=== PATIENT | female | born 1960 | race Caucasian/White ===

== ENCOUNTER → 2017-01-25 | Outpatient (CLI) | payer OTHER ==
[~2017-01-25] MED LIST: CITA20TA4 PO; IBUP-1050 PO; PRLSR20 PO
[2017-01-26 12:04] LABS: URINE APPEARANCE CLOUDY (CLEAR); URINE BILIRUBIN NEG (NEG); URINE COLOR YELLOW; URINE NITRITE NEG (NEG); URINE PH 6.5 (4.5-7.5); URINE SPECIFIC GRAVITY 1.023 (1.000-1.030); UROBILINOGEN NEG (NEG)
[2017-01-26 12:07] LABS: MANUAL MICROSCOPIC REQUIRED? NO; REVIEW REQ? YES
== END | disposition home or self-care (01) ==
LOC: C.LABSPEC 11:27
PROVIDERS: ATTEND Family Medicine
DX: Z00.00 Encounter for general adult medical examination without abnormal findings (principal)

== ENCOUNTER 2019-10-18 15:13 | Inpatient (IN) ==
[2019-10-18] MEDS ORDERED: SODIUM CHLORIDE 0.9% 1000ML 1,000 ML IV ONE ×2 (15:26→17:56)
--- NOTE | 2019-10-18 15:38 | XRay Report ---
XR chest 1V portable CLINICAL HISTORY: 59 years-old Female presenting with confusion, weakness. TECHNIQUE: Portable upright AP view of the chest was obtained. COMPARISON: 10/08/2019. FINDINGS: Right internal jugular Mediport terminates in the superior cavoatrial junction. Cardiomediastinal thelma houette normal. No focal opacity. No large effusion or pneumothorax. Degenerative changes of the thor acic spine. Upper abdomen normal. IMPRESSION: 1. No acute cardiopulmonary disease. ACT 112: Negative or not required by law. Electronically signed by: Juan Jose Campbell M.D. 10/18/2019 3:37 PM
[2019-10-18 15:42] LABS: Basophils # (auto) 0.02 K/uL (0-0.2); Basophils % (auto) 0.2 %; Hematocrit (blood only) 32.1 % (37-47); Hemoglobin 10.7 g/dL (12.0-16.0); Immature Granulocytes # (auto) 0.04 K/uL (0.00-0.02); Immature Granulocytes % (auto) 0.4 %; Lymphocytes % (auto) 12.7 %; Mean Corpuscular Hemoglobin 28.8 pg (25-34); Mean Corpuscular Hgb Conc 33.3 g/dL (32-36); Mean Corpuscular Volume 86.3 fL (80-100); Mean Platelet Volume 9.1 fL (7.4-10.4); Monocytes % (auto) 15.4 %; Neutrophils # (auto) 7.85 K/uL (1.4-6.5); Neutrophils % (auto) 71.3 %; Platelet Count 635 K/uL (130-400); RDW Coefficient of Variation 15.8 % (11.5-14.5); RDW Standard Deviation 48.4 fL (36.4-46.3); Red Blood Count 3.72 M/uL (4.2-5.4); White Blood Count 11.01 K/uL (4.8-10.8)
[2019-10-18 15:52] LABS: INR 1.4 (0.9-1.1); Prothrombin Time 14.3 Seconds (9.0-12.0)
[2019-10-18 16:05] LABS: Albumin Globulin Ratio 0.5 (0.9-2); Albumin Level 2.4 gm/dl (3.4-5.0); BUN Creatinine Ratio 12.2 (10-20); Bilirubin,Total 0.6 mg/dl (0.2-1); Calcium 9.3 mg/dl (8.5-10.1); Creatinine Clr Calc Pharmacy 68.2 ml/min; Est GFR (African American) 95.1; Est GFR (Non-African American) 82.1; Globulin 4.8 gm/dl (2.5-4.0); Phosphorus 2.1 mg/dl (2.5-4.9); Potassium 3.4 mmol/L (3.5-5.1); Total Protein 7.2 gm/dl (6.4-8.2)
[2019-10-18] MEDS: MAGNESIUM SULFATE / D5W 1 GM/100 ML BAG IV SCH ×2 (16:19→17:30)
--- NOTE | 2019-10-18 16:22 | Emergency Department Note ---
History of Present Illness General Chief complaint: Illness History of Present Illness Maximum Pain Intensity: 7 This patient is a 59-year-old female who presents emergency department compl aining of severe diarrhea for the last 2 days. She also reports a lower, chronic abdominal pain. The patient has a history of metastatic endometrial cancer. She is currently on palliative chemotherapy, however she has not been able to receive it for "poor numbers." She denies any fever. She was nauseated earlier today. She received Zofran in route, which has seemed to help. She denies any sick contacts. She reports that she has not left her house. She does say that she was slightly confused for a few minutes this morning. Home Medications Home Medications Medication Instructions Recorded Confirmed Type Probiotic 3,000 mmu cells PO QDL 05/18/19 10/18/19 History Vitamin B-6 50 mg PO QDL 05/18/19 10/18/19 History cyanocobalamin (vitamin B-12) 500 mcg PO QDL 05/18/19 10/18/19 History multivitamin 1 tab PO QDL 05/18/19 10/18/19 History lorazepam 1 mg PO Q6H PRN 08/22/19 10/18/19 History docusate sodium [Colace] 100 mg PO HS PRN 09/09/19 10/18/19 History metoprolol succinate 25 mg PO QAM 09/09/19 10/18/19 History omeprazole 20 mg PO QDL 09/09/19 10/18/19 History oxycodone 10 mg PO Q4H PRN 09/09/19 10/18/19 History pravastatin 10 mg PO HS 09/09/19 10/18/19 History sennosides [senna] 17.2 mg PO HS PRN 09/09/19 10/18/19 History metoclopramide HCl [Reglan] 10 mg PO TID PRN #14 tab 09/13/19 10/18/19 Rx ondansetron HCl 8 mg tablet 8 mg PO Q8H PRN tab 09/18/19 10/18/19 History citalopram 20 mg tablet 40 mg PO QDL #180 tab 10/13/19 10/18/19 Rx magnesium oxide 400 mg PO QAM 10/18/19 10/18/19 History potassium chloride 20 meq PO QAM 10/18/19 10/18/19 History Allergies Allergy/AdvReac Type Severity Reaction Status Date / Time olanzapine AdvReac Severe out of Unverified 10/18/19 16:22 body feeling and mind wondering naproxen AdvReac Mild EYELID Verified 10/18/19 16:22 SWELLING Past Med/Surg History Medical History Anxiety (Chronic) Cancer associated pain Endometrial carcinoma (Resolved) Hyperlipidemia Hypertension Peritoneal metastases Uterine cancer Surgical History History of hysterectomy S/P appendectomy 05/19/19 Dr. 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 Beliefs That Will Affect Care: None marital status: Current Living Situation: Spouse current occupational status: disabled Feels Safe at Home: Yes Safety Concerns: Feels Safe At This Time Smoking Status: Never smoker Hx Alcohol Use: No Hx Substance Use: No Childhood Exposure to Second-Hand Smoke: No Dental Care, Regularly: Yes Physical Activity Frequency: Daily Seatbelt Use: always Sunscreen Use: Yes Review of Systems A total of 10 systems reviewed and were otherwise negative Physical Exam Vital Signs Vital Signs - 24 hr 10/18/19 15:21 10/18/19 15:25 10/18/19 15:27 Temperature 36.4 C L Temperature Source Oral Pulse Rate 86 83 83 Pulse Rate from SpO2 Sensor Respiratory Rate 22 Respiratory Depth Normal Respiratory Pattern Regular Blood Pressure 140/69 140/69 Blood Pressure Mean 88 92 Blood Pressure Position Lying Pulse Oximetry 94 Oxygen Delivery Method Room Air Sepsis Recent Fever Within 48 Hours No Sepsis New/Unexplained Change in Mental Status No Sepsis Action Taken by Nursing No Action Required 10/18/19 15:30 10/18/19 15:32 10/18/19 16:18 Temperature Temperature Source Pulse Rate 82 84 77 Pulse Rate from SpO2 Sensor Respiratory Rate Respiratory Depth Respiratory Pattern Blood Pressure 117/87 129/79 Blood Pressure Mean 90 90 Blood Pressure Position Pulse Oximetry 100 Oxygen Delivery Method Room Air Sepsis Recent Fever Within 48 Hours Sepsis New/Unexplained Change in Mental Status Sepsis Action Taken by Nursing 10/18/19 16:30 10/18/19 17:00 10/18/19 17:01 Temperature Temperature Source Pulse Rate 76 75 76 Pulse Rate from SpO2 Sensor 76 77 75 Respiratory Rate Respiratory Depth Respiratory Pattern Blood Pressure 136/76 142/82 H Blood Pressure Mean 87 91 Blood Pressure Position Pulse Oximetry 97 100 100 Oxygen Delivery Method Room Air Sepsis Recent Fever Within 48 Hours Sepsis New/Unexplained Change in Mental Status Sepsis Action Taken by Nursing 10/18/19 17:30 10/18/19 18:00 10/18/19 18:30 Temperature Temperature Source Pulse Rate 79 92 H 85 Pulse Rate from SpO2 Sensor Respiratory Rate 19 23 Respiratory Depth Respiratory Pattern Blood Pressure 145/89 H 149/92 H 131/76 Blood Pressure Mean 110 112 91 Blood Pressure Position Pulse Oximetry Oxygen Delivery Method Sepsis Recent Fever Within 48 Hours Sepsis New/Unexplained Change in Mental Status Sepsis Action Taken by Nursing Constitutional WD/WN, vitals as above Chronically ill in appearance. Eyes EOM intact bilaterally ENMT Oral mucosa slightly dry. Neck trachea midline Respiratory normal respiratory effort, lungs clear to auscultation Cardiovascular RRR, no murmur, no edema Gastrointestinal (Abdomen) Bowel sounds present in all 4 quadrants. Mild tenderness to palpation diffusely in the lower abdomen. No guarding or rebound tenderness noted. Musculoskeletal no cyanosis or clubbing, extremities motor strength 5/5 Skin no rashes, warm and dry Neurologic Alert and oriented x3. No focal motor deficits. Psychiatric Acting appropriately Course Course Patient was seen and examined Vital signs including blood pressure were reviewed medications list was verified with patient Labs were obtained, and a saline lock was established Medications ordered. Imaging was performed and reviewed. The patient was evaluated by the psychiatric liaison. The patient was reassessed. We discussed her results. She voiced understanding. She was in agreement with disposition. The hospital service was consulted. They kindly agreed to evaluate the patient for likely inpatient management. The patient remained stable in the emergency department Reevaluation(s) Reevaluation #1: Dr. Nicole Administered Medications Citalopram Hydrobromide (Celexa) 40 mg PO QDL [facility] Stop: 11/18/19 11:29 Last Admin: 10/19/19 11:57 Dose: 40 mg Documented by: [id number] Cyanocobalamin (Vitamin B-12) 500 mcg PO QDL [facility] Stop: 11/18/19 11:29 Last Admin: 10/19/19 11:56 Dose: 500 mcg Documented by: [id number] Potassium Chloride 10 meq/ (Dextrose/Sodium Chloride) 1,005 mls @ 80 mls/hr IV .[id number] [facility] Stop: 11/17/19 19:43 Last Admin: 10/19/19 08:49 Dose: 80 mls/hr Documented by: [id number] Infusion: 10/19/19 08:49 Dose: 80 mls/hr Documented by: [id number] Admin: 10/18/19 21:20 Dose: 80 mls/hr Documented by: [id number] Lactobacillus Acidophilus (Floranex Granules/Powder Packet) 1 gm PO QDL [facility] Stop: 11/18/19 11:29 Last Admin: 10/19/19 11:56 Dose: 1 gm Documented by: [id number] [facility]) [facility] [facility]: 11/18/19 08:59 Last Admin: 10/19/19 08:27 Dose: 400 mg Documented by: [id number] Metoprolol Succinate (Toprol Xl) [facility] [place]: 11/18/19 08:59 Last Admin: 10/19/19 08:27 Dose: 25 mg Documented by: [id number] Multivitamins (Multivitamin Tab) 1 tab PO QDL [facility] Stop: 11/18/19 11:29 Last Admin: 10/19/19 11:56 Dose: 1 tab Documented by: [id number] Ondansetron HCl (Zofran) 4 mg IV Q6H PRN PRN Reason: Nausea Stop: 11/17/19 19:43 Last Admin: 10/18/19 20:14 Dose: 4 mg Documented by: [id number] Oxycodone HCl (Roxicodone Immediate Rel) 10 mg PO Q4H PRN PRN Reason: Pain Stop: 11/01/19 19:43 Last Admin: 10/19/19 00:01 Dose: 10 mg Documented by: [id number] Pantoprazole Sodium (Protonix) 40 mg PO QDL [facility] Stop: 11/18/19 11:29 Last Admin: 10/19/19 11:56 Dose: 40 mg Documented by: [id number] Potassium Chloride (Klor-Con M20) 20 meq PO QAM [facility] Stop: 11/18/19 08:59 Last Admin: 10/19/19 08:28 Dose: 20 meq Documented by: [id number] Pravastatin Sodium (Pravachol) 10 mg PO HS [facility] Stop: 11/17/19 20:59 Last Admin: 10/18/19 21:21 Dose: 10 mg Documented by: [id number] Pyridoxine HCl (Vitamin B-6) 50 mg PO QDL [facility] Stop: 11/18/19 11:29 Last Admin: 10/19/19 11:57 Dose: 50 mg Documented by: [id number] Discontinued Medications Sodium Chloride (Nss 1000ml) 1,000 mls @ 999 mls/hr IV .Q1H1M ONE Stop: 10/18/19 16:26 Last Infusion: 10/18/19 16:42 Dose: 0 mls/hr Documented by: [id number] Admin: 10/18/19 15:34 Dose: 999 mls/hr Documented by: [id number] Magnesium Sulfate/Dextrose (Magnesium Sulfate / D5w) 1 gm in 100 mls @ 100 mls/hr IV Q1H [facility] Stop: 10/18/19 18:14 Last Infusion: 10/18/19 18:31 Dose: 0 mls/hr Documented by: [id number] Admin: 10/18/19 17:30 Dose: 100 mls/hr Documented by: [id number] Infusion: 10/18/19 17:30 Dose: 0 mls/hr Documented by: [id number] Admin: 10/18/19 16:19 Dose: 100 mls/hr Documented by: [id number] Sodium Chloride (Nss 1000ml) 1,000 mls @ 999 mls/hr IV .Q1H1M ONE Stop: 10/18/19 18:56 Last Infusion: 10/18/19 19:29 Dose: 0 mls/hr Documented by: [id number] Admin: 10/18/19 18:20 Dose: 999 mls/hr Documented by: [id number] Potassium Phosphate 15 mmol/ (Sodium Chloride) 255 mls @ 88 mls/hr IV ONE ONE Stop: 10/18/19 22:53 Last Infusion: 10/19/19 00:56 Dose: 0 mls/hr Documented by: [id number] Admin: 10/18/19 21:20 Dose: 88 mls/hr Documented by: [id number] Medical Decision Making Medical Records Attestation: I reviewed the patient's medical records. Home Medications Current Medication List: was personally reviewed by me Laboratory Data Attestation: I reviewed the patient's lab results. Result diagrams: 10/19/19 06:09 10/19/19 06:09 Lab Results 10/18/19 10/18/19 10/18/19 Range/Units 15:08 15:08 15:08 WBC 11.01 H (4.8-10.8) K/uL RBC 3.72 L (4.2-5.4) M/uL Hgb 10.7 L (12.0-16.0) g/dL Hct 32.1 L (37-47) % MCV 86.3 (80-100) fL MCH 28.8 (25-34) pg MCHC 33.3 (32-36) g/dL RDW Std Deviation 48.4 H (36.4-46.3) fL RDW Coeff of Abilio 15.8 H (11.5-14.5) % Plt Count 635 H (130-400) K/uL MPV 9.1 (7.4-10.4) fL Immature Gran % (Auto) 0.4 % Neut % (Auto) 71.3 % Lymph % (Auto) 12.7 % [place] % (Auto) 15.4 % Eos % (Auto) 0.0 % Baso % (Auto) 0.2 % Immature Gran # (Auto) 0.04 H (0.00-0.02) K/uL Neut # (Auto) 7.85 H (1.4-6.5) K/uL Lymph # (Auto) 1.40 (1.2-3.4) K/uL [place] # (Auto) 1.70 H (0.11-0.59) K/uL Eos # (Auto) 0.00 (0-0.5) K/uL Baso # (Auto) 0.02 (0-0.2) K/uL PT 14.3 H (9.0-12.0) Seconds INR 1.4 H (0.9-1.1) Sodium 132 L (136-145) mmol/L Potassium 3.4 L (3.5-5.1) mmol/L Chloride 96 L (98-107) mmol/L Carbon Dioxide 24 (21-32) mmol/L Anion Gap 12.0 H (3-11) BUN 10 (7-18) mg/dl Creatinine 0.78 (0.6-1.2) mg/dl Est Cr Clr Drug Dosing 68.2 ml/min Est GFR ( Amer) 95.1 Est GFR (Non-Af Amer) 82.1 BUN/Creatinine Ratio 12.2 (10-20) Glucose 87 (70-99) mg/dl Calcium 9.3 (8.5-10.1) mg/dl Phosphorus 2.1 L (2.5-4.9) mg/dl Magnesium 1.0 L (1.8-2.4) mg/dl Total Bilirubin 0.6 (0.2-1) mg/dl AST 50 H (15-37) U/L ALT 28 (12-78) U/L Alkaline Phosphatase 250 H (45-117) U/L Total Protein 7.2 (6.4-8.2) gm/dl Albumin 2.4 L (3.4-5.0) gm/dl Globulin 4.8 H (2.5-4.0) gm/dl Albumin/Globulin Ratio 0.5 L (0.9-2) Lipase 79 (73-393) U/L Imaging Data Attestation: I personally reviewed and interpreted this imaging study as follows: Radiologist's Impression: Chest x-ray IMPRESSION: 1. No acute cardiopulmonary disease. ACT 112: Negative or not required by law. Electronically signed by: Juan Jose Campbell M.D. 10/18/2019 3:37 PM Dictated: 10/18/19 1536 Transcribed: 10/18/19 1536 [facility] Narrative Differential diagnosis: Acute on chronic diarrhea, GI bleed, infectious etiology , inflammatory bowel disease, dehydration, metastatic disease, bowel obstruction, among others This patient is a 59-year-old female who presents to the emergency department with severe diarrhea. She also reports abdominal pain that is chronic in nature. Her vital signs were stable. No fever. The patient reports a history of chronic diarrhea with her chemotherapy. Her labs reveal significant electrolyte abnormalities. For this reason, I did not feel comfortable discharging the patient home. She does appear severely depressed, which is why she was evaluated by the psychiatric liaison. She is not suicidal or homicidal. This was addressed in the emergency department. She will likely be admitted for further management. Impression & Plan Hypomagnesemia, Dehydration, Diarrhea Discharge Plan Visit Data *Final* Discharge Date/Time: 10/18/19 19:23 Chief Complaint: Illness ED Provider: Fab Oreilly ED Midlevel Provider: Julieta Dasilva Discharge Problem: Hypomagnesemia, Dehydration, Diarrhea Patient Disposition: Admitted As Inpatient Condition: Fair Discharge Instructions Interventions: ED Discharge Assessment Last Done: 10/18/19 19:23
--- NOTE | 2019-10-18 18:51 | History & Physical Report ---
Date of Service October 18, 2019 Assessment & Plan (1) Hypomagnesemia: Replaced in ED, monitor continue home meds (2) Decreased appetite: Has not tried marinol in the past, will order (3) Hypophosphatemia: Replace and monitor (4) Hypokalemia: Replace and monitor (5) Endometrial cancer: Has not been able to receive chemo for several weeks due to lab abnormalities Is considering d/c chemo and plans to d/w her oncology team next week Baseline abd pain related to mets, will hold on imaging (6) Anemia: Stable at 10.7 s/p PRBC last week for Hb 6/0 Monitor Likely related to chemo/cancer status (7) S/P ureteral stent placement: Stable UA pending (8) Hyperlipidemia: continue home meds (9) Hypertension: continue home meds (10) Weakness: Related to poor PO intake and chemo, also n/v/d related to chemo PT/OT if needed (did not order at this time) (11) Depression: continue home meds (12) Pain management: States she will need rx on d/c for pain control as she is out at home (13) DVT prophylaxis: SCDs to avoid bleeding History of Present Illness Primary Care Provider: Yumiko Edwards MD 59 y/o F c/o n/v/d. Pt states that she has had ongoing n/v, which is typical for her with her chemo for endometrial cancer. Her last chemo was about 3 weeks ago. She states that she has been in weekly to attempt chemo but that "my numbers are always off and I can't have it". Her last attempt was last Sunday. She states she had to get blood about 3 weeks ago. She states that she has continued with ongoing n/v and decreased appetite, but also developed diarrhea about 2 days ago. She has ongoing abd pain which is related to her cancer status and mets. It is the same as usual. She has had increased urination since have a R ureteral stent placed 3 weeks ago. This is related to a surgical complication. She states she is "wiped out" and does not feel safe to go home because she is so weak. She has not been able to eat anything. Pt denies fever, SOB, chest pain, LE pain or swelling. Pt is very frustrated with her current course of chemo. She states she is considering stopping chemo and planned to discuss this at her appt on Sunday. Allergies Allergy/AdvReac Type Severity Reaction Status Date / Time olanzapine AdvReac Severe out of Unverified 10/18/19 16:22 body feeling and mind wondering naproxen AdvReac Mild EYELID Verified 10/18/19 16:22 SWELLING Home Medications Home Medications Medication Instructions Recorded Confirmed Type Probiotic 3,000 mmu cells PO QDL 05/18/19 10/18/19 History Vitamin B-6 50 mg PO QDL 05/18/19 10/18/19 History cyanocobalamin (vitamin B-12) 500 mcg PO QDL 05/18/19 10/18/19 History multivitamin 1 tab PO QDL 05/18/19 10/18/19 History lorazepam 1 mg PO Q6H PRN 08/22/19 10/18/19 History docusate sodium [Colace] 100 mg PO HS PRN 09/09/19 10/18/19 History metoprolol succinate 25 mg PO QAM 09/09/19 10/18/19 History omeprazole 20 mg PO QDL 09/09/19 10/18/19 History oxycodone 10 mg PO Q4H PRN 09/09/19 10/18/19 History pravastatin 10 mg PO HS 09/09/19 10/18/19 History sennosides [senna] 17.2 mg PO HS PRN 09/09/19 10/18/19 History metoclopramide HCl [Reglan] 10 mg PO TID PRN #14 tab 09/13/19 10/18/19 Rx ondansetron HCl 8 mg tablet 8 mg PO Q8H PRN tab 09/18/19 10/18/19 History citalopram 20 mg tablet 40 mg PO QDL #180 tab 10/13/19 10/18/19 Rx magnesium oxide 400 mg PO QAM 10/18/19 10/18/19 History potassium chloride 20 meq PO QAM 10/18/19 10/18/19 History Past Med/Surg History Medical History Anxiety (Chronic) Cancer associated pain Endometrial carcinoma (Resolved) Hyperlipidemia Hypertension Peritoneal metastases Uterine cancer Surgical History History of hysterectomy S/P appendectomy 05/19/19 Dr. 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 Beliefs That Will Affect Care: None marital status: Current Living Situation: Spouse current occupational status: disabled Feels Safe at Home: Yes Smoking Status: Never smoker Hx Alcohol Use: No Hx Substance Use: No Childhood Exposure to Second-Hand Smoke: No Dental Care, Regularly: Yes Physical Activity Frequency: Daily Seatbelt Use: always Sunscreen Use: Yes Review of Systems Review of Systems: Pertinent positives and negatives reviewed in HPI--all others negative Physical Exam Constitutional: WD/WN, vitals as above + ill appearing Eyes: normal visual maria by confrontation and + anicteric sclerae Neck: normal visual inspection and trachea midline Respiratory: normal respiratory effort, lungs clear to auscultation Cardiovascular: Rate/Rhythm: regular rate and regular rhythm Gastrointestinal (Abdomen): Inspection/Auscultation: abdomen not distended Percussion/Palpation: + abdomen tender (mild, lower abd) and abdomen soft Musculoskeletal: Head/Neck/Chest: normocephalic and head atraumatic negative for edema, peripheral pulses intact Skin: no rashes, warm and dry Neurologic: awake; not confused Speech / Cognition: normal speech Psychiatric: A+Ox3, euthymic affect Results & Data Results & Data ([facility]) Vital Signs (Past 12 Hours) Vital Signs Temp Pulse Resp BP Pulse Ox 10/18/19 18:00 92 H 19 149/92 H 10/18/19 17:30 79 145/89 H 10/18/19 17:01 76 142/82 H 100 10/18/19 17:00 75 100 10/18/19 16:30 76 136/76 97 10/18/19 16:18 77 129/79 100 10/18/19 15:32 84 117/87 10/18/19 15:30 82 10/18/19 15:27 36.4 C L 83 22 140/69 94 03/28/20 15:25 83 10/18/19 15:21 86 140/69 Code Status & VTE Plan Code Status DNR/DNI at pt request VTE Prophylaxis Plan VTE Prophylaxis will be ordered: Yes PG Care Time/CCT Total # of Minutes Spent Total Time Spent with Patient: Total time spent is greater than 50% in coordination of care (as documented) at patient's floor/unit and/or counseling patient: Coding Level of Care Code 57630 Initial Inpt Care Lvl 3 Diagnoses Hypomagnesemia E83.42 Decreased appetite R63.0 Hypophosphatemia E83.39 Hypokalemia E87.6 Endometrial cancer C54.1 Anemia D64.81; T45.1X5A Anemia type: other cause Other causes of anemia: antineoplastic chemotherapy S/P ureteral stent placement Z96.0 Hyperlipidemia E78.5 Hyperlipidemia type: unspecified Hypertension I10 Hypertension type: essential hypertension Weakness R53.1 Depression F32.9 Pain management R52 DVT prophylaxis Z29.9 (1) Anemia Anemia type: other cause Other causes of anemia: antineoplastic chemotherapy Qualified Code(s): D64.81 - Anemia due to antineoplastic chemotherapy; T45.1X5A - Adverse effect of antineoplastic and immunosuppressive drugs, initial encounter (2) Hyperlipidemia Hyperlipidemia type: unspecified Qualified Code(s): E78.5 - Hyperlipidemia, unspecified (3) Hypertension Hypertension type: essential hypertension Qualified Code(s): I10 - Essential (primary) hypertension
[2019-10-18] MEDS ORDERED: DOCUSATE SODIUM 100 MG CAP PO PRN (19:44)
[2019-10-18] MEDS ORDERED: METOCLOPRAMIDE HCL 10 MG TABLET PO PRN (19:44)
[2019-10-18] MEDS ORDERED: ACETAMINOPHEN 325 MG TAB PO PRN (19:44)
[2019-10-18] MEDS ORDERED: SENNA 8.6 MG TAB PO PRN (19:44)
[2019-10-18] MEDS ORDERED: MAGNESIUM HYDROXIDE SUSP 30 ML UDC PO PRN (19:44)
[2019-10-18] MEDS ORDERED: POTASSIUM PHOS 3 MMOL/1 ML INFUSION IV STA (19:44)
[2019-10-18] MEDS ORDERED: POTASSIUM PHOSPHATE 15 MMOL in SODIUM CHLORIDE 0.9% 250 ML IV ONE (20:00)
[2019-10-18] MEDS ORDERED: ONDANSETRON 8MG OD TAB PO PRN (20:04)
[2019-10-18] MEDS: ONDANSETRON INJ 2 MG/ML 2 ML VIAL IV PRN (20:14)
[2019-10-18] MEDS: POTASSIUM CHLORIDE 10 MEQ in D5W AND NSS 1,000 ML IV SCH (21:20)
[2019-10-18] MEDS: PRAVASTATIN SOD 10 MG TAB PO SCH (21:21)
[2019-10-18 23:22] LABS: Appearance Urine Clear (Clear); Bacteria Urine Automated Negative (Negative); Bilirubin Urine Negative (Negative); Blood Urine Negative (Negative); Color Urine Dark Yellow; Epithelial Cell Urine Auto >30 /lpf (0-5); Glucose Urine UA Negative (Negative); Ketones Urine 1+ (Negative); Leukocyte Esterase Urine 1+ (Negative); Nitrite Urine Negative (Negative); Protein Urine Trace (Negative); Specific Gravity Urine 1.024 (1.000-1.030); Urobilinogen Urine Negative (Negative)
[2019-10-19] MEDS: OXYCODONE HCL IR 5 MG TAB (IMMEDIATE RELEASE) PO PRN ×3 (00:01→22:51)
[2019-10-19 06:28] LABS: Basophils # (auto) 0.02 K/uL (0-0.2); Basophils % (auto) 0.2 %; Hemoglobin 8.6 g/dL (12.0-16.0); Immature Granulocytes # (auto) 0.05 K/uL (0.00-0.02); Immature Granulocytes % (auto) 0.4 %; Lymphocytes # (auto) 1.93 K/uL (1.2-3.4); Lymphocytes % (auto) 15.7 %; Mean Corpuscular Hemoglobin 28.8 pg (25-34); Mean Corpuscular Hgb Conc 33.1 g/dL (32-36); Mean Platelet Volume 8.9 fL (7.4-10.4); Monocytes # (auto) 2.26 K/uL (0.11-0.59); Monocytes % (auto) 18.3 %; Neutrophils # (auto) 8.06 K/uL (1.4-6.5); Neutrophils % (auto) 65.4 %; Platelet Count 550 K/uL (130-400); RDW Coefficient of Variation 15.8 % (11.5-14.5); RDW Standard Deviation 49.7 fL (36.4-46.3); Red Blood Count 2.99 M/uL (4.2-5.4); White Blood Count 12.32 K/uL (4.8-10.8)
[2019-10-19 07:00] LABS: BUN Creatinine Ratio 10.8 (10-20); Calcium 8.1 mg/dl (8.5-10.1); Est GFR (African American) 108.9; Magnesium 1.8 mg/dl (1.8-2.4); Potassium 3.5 mmol/L (3.5-5.1)
[2019-10-19 07:07] LABS: Phosphorus 3.7 mg/dl (2.5-4.9)
[2019-10-19] MEDS: METOPROLOL SUCC 25MG EXT REL TAB PO SCH (08:27)
[2019-10-19] MEDS: POTASSIUM CHLORIDE 20 MEQ TABCR PO SCH (08:28)
[2019-10-19] MEDS: POTASSIUM CHLORIDE 10 MEQ in D5W AND NSS 1,000 ML IV SCH ×2 (08:49→21:12)
[2019-10-19] MEDS ORDERED: MAGNESIUM OXIDE 400 MG TAB PO SCH (09:00)
[2019-10-19] MEDS: CYANOCOBALAMIN 500 MCG TABLET (VITAMIN B-12) PO SCH (11:56)
[2019-10-19] MEDS: MULTIVITAMIN TAB PO SCH (11:56)
[2019-10-19] MEDS: LACTOBACILLUS ACIDOPHILUS 1 GM PACK PO SCH (11:56)
[2019-10-19] MEDS: PANTOprazole 40 MG TAB PO SCH (11:56)
[2019-10-19] MEDS: CITALOPRAM 40 MG TAB PO SCH (11:57)
[2019-10-19] MEDS: PYRIDOXINE HCL 50 MG TAB PO SCH (11:57)
--- NOTE | 2019-10-19 13:45 | Hospitalist Progress Note ---
Date of Service October 19, 2019 Assessment & Plan (1) Nausea vomiting and diarrhea: Presented with 2 days of N/V/D, non bloody. Last chemotherapy 3 weeks ago. Did take abx 2 weeks ago for UTI -N/V improved today, adv diet to reg today as tolerated Diarrhea continues WBC count elevated, afebrile, no abd pain -check C. diff, stool culture -replace lytes as below -continue IVFs -continue Marinol prn -continue reglan and ZOfran prn (2) Hypomagnesemia: replaced and improved -follow level in the AM with ongoing GI losses/diarrhea (3) Decreased appetite: Has not tried marinol in the past -started marinol this amdission (4) Hypophosphatemia: Replaced and resolved -follow levels (5) Hypokalemia: Replaced and resolved -follow BMP (6) Endometrial cancer: Has not been able to receive chemo for several weeks due to lab abnormalities Is considering d/c chemo and plans to d/w her oncology team next week Baseline abd pain related to mets, will hold on imaging (7) Anemia: Hgb 10.7 on admission and dropped today to baseline 8.6 likely hemodilutional s/p PRBC last week for Hb 6.0 Monitor Likely related to chemo/cancer status (8) S/P ureteral stent placement: Has indwelling right ureteral stent just changed out again in September 2019, for rt hydronephrosis-stays in for 3 months Follows with Urology at [place] UA contaminated, does not appear infected (9) Hyperlipidemia: continue home pravastatin (10) Hypertension: BPs actually a bit elevated here -continue home metoprolol (11) Weakness: Related to poor PO intake and chemo, also n/v/d related to chemo PT/OT evals ordered -continue IVF hydration (12) Depression: continue home Celexa 40mg daily, ativan prn (13) Pain management: States she will need rx on d/c for pain control as she is out at home (14) Thrombocytosis: plts in the 600s on admission and then down to 500s today could be reactive to severe anemia vs inflammation (15) DVT prophylaxis: SCDs Add Lovenox given high risk with malignancy-hold if bleeding or drop in hgb further Dispo-continued stay, PT/OT evals, possible dc to home tomorrow if improved diarrhea Admission and Anticipated Discharge Date Admission Date: October 18, 2019 Anticipated date of discharge: 10/20/19 Subjective Pt reports feeling a little better today but still very fatigued. Still having loose stools once every hour, incontinence to loose stool in her brief as well. Is making urine. No further vomiting and nausea is improved. Is wanting to try regular food. Denies abd pain. No blood in vomit or stool. Reports her usual chemo-related N/V/D comes within a week of chemo. Last chemo was 3 weeks ago. Also reports she was treated with abx for a UTI 2 weeks ago. Denies CP or SOB. Not lightheaded Review of Systems Review of Systems: All systems reviewed & are unremarkable except as noted in HPI & below Physical Exam Constitutional: + ill appearing; no acute distress Eyes: + anicteric sclerae ENMT: external ear and nose normal, oropharynx normal Neck: trachea midline, no thyromegaly Respiratory: normal respiratory effort, lungs clear to auscultation Cardiovascular: RRR, no murmur, no edema Chest (Breasts): Chest: normal inspection of chest Gastrointestinal (Abdomen): normal bowel sounds, soft, nontender, no hepatosplenomegaly Musculoskeletal: Extremities: extremities normal to inspection; no cyanosis and no clubbing Skin: no rashes, warm and dry Neurologic: moves all extremities and awake; no focal motor deficits Psychiatric: A+Ox3, euthymic affect Lymphatic: no lymphedema Results & Data Results & Data ([facility]) Vital Signs (Past 12 Hours) Vital Signs Temp Pulse Resp BP Pulse Ox 10/19/19 11:13 36.6 C 71 18 129/77 98 10/19/19 07:10 36.9 C 75 20 109/67 98 10/19/19 03:36 36.8 C 79 20 121/71 96 Laboratory Results 10/19/19 10/19/19 10/18/19 Range/Units 06:09 06:09 22:15 WBC 12.32 H (4.8-10.8) K/uL RBC 2.99 L (4.2-5.4) M/uL Hgb 8.6 L (12.0-16.0) g/dL Hct 26.0 L (37-47) % MCV 87.0 (80-100) fL MCH 28.8 (25-34) pg MCHC 33.1 (32-36) g/dL RDW Std Deviation 49.7 H (36.4-46.3) fL RDW Coeff of Abilio 15.8 H (11.5-14.5) % Plt Count 550 H (130-400) K/uL MPV 8.9 (7.4-10.4) fL Immature Gran % (Auto) 0.4 % Neut % (Auto) 65.4 % Lymph % (Auto) 15.7 % [place] % (Auto) 18.3 % Eos % (Auto) 0.0 % Baso % (Auto) 0.2 % Immature Gran # (Auto) 0.05 H (0.00-0.02) K/uL Neut # (Auto) 8.06 H (1.4-6.5) K/uL Lymph # (Auto) 1.93 (1.2-3.4) K/uL [place] # (Auto) 2.26 H (0.11-0.59) K/uL Eos # (Auto) 0.00 (0-0.5) K/uL Baso # (Auto) 0.02 (0-0.2) K/uL Sodium 135 L (136-145) mmol/L Potassium 3.5 (3.5-5.1) mmol/L Chloride 104 (98-107) mmol/L Carbon Dioxide 24 (21-32) mmol/L Anion Gap 7.0 (3-11) BUN 8 (7-18) mg/dl Creatinine 0.69 (0.6-1.2) mg/dl Est Cr Clr Drug Dosing 77.0 ml/min Est GFR ( Amer) 108.9 Est GFR (Non-Af Amer) 94.0 BUN/Creatinine Ratio 10.8 (10-20) Glucose 102 H (70-99) mg/dl Calcium 8.1 L (8.5-10.1) mg/dl Phosphorus 3.7 D (2.5-4.9) mg/dl Magnesium 1.8 (1.8-2.4) mg/dl Urine Color Dark Yellow Urine Appearance Clear (Clear) Urine pH 7.0 (4.5-7.5) Ur Specific [place] 1.024 (1.000-1.030) Urine Protein Trace H (Negative) Urine Glucose (UA) Negative (Negative) Urine Ketones 1+ H (Negative) Urine Blood Negative (Negative) Urine Nitrite Negative (Negative) Urine Bilirubin Negative (Negative) Urine Urobilinogen Negative (Negative) Ur Leukocyte Esterase 1+ H (Negative) Urine WBC (Auto) 5-10 H (0-5) /hpf Urine RBC (Auto) 5-10 H (0-4) /hpf U Hyaline Cast (Auto) 5-10 H (0-5) /lpf U Epithel Cells (Auto) >30 H (0-5) /lpf Urine Bacteria (Auto) Negative (Negative) Ur Renal Epithelial Cell Not Reportable PG Care Time/CCT Total # of Minutes Spent Total Time Spent with Patient: Total time spent is greater than 50% in coordination of care (as documented) at patient's floor/unit and/or counseling patient: Coding Level of Care Code 40533 Subseq Hosp Care Lvl 3 Diagnoses Nausea vomiting and diarrhea R11.2; R19.7 Hypomagnesemia E83.42 Decreased appetite R63.0 Hypophosphatemia E83.39 Hypokalemia E87.6 Endometrial cancer C54.1 Anemia D64.81; T45.1X5A Anemia type: other cause Other causes of anemia: antineoplastic chemotherapy S/P ureteral stent placement Z96.0 Hyperlipidemia E78.5 Hyperlipidemia type: unspecified Hypertension I10 Hypertension type: essential hypertension Weakness R53.1 Depression F32.9 Pain management R52 Thrombocytosis D47.3 DVT prophylaxis Z29.9 (1) Anemia Anemia type: other cause Other causes of anemia: antineoplastic chemotherapy Qualified Code(s): D64.81 - Anemia due to antineoplastic chemotherapy; T45.1X5A - Adverse effect of antineoplastic and immunosuppressive drugs, initial encounter (2) Hyperlipidemia Hyperlipidemia type: unspecified Qualified Code(s): E78.5 - Hyperlipidemia, unspecified (3) Hypertension Hypertension type: essential hypertension Qualified Code(s): I10 - Essential (primary) hypertension
[2019-10-19] MEDS: PRAVASTATIN SOD 10 MG TAB PO SCH (21:12)
[2019-10-19] MEDS: LORazepam 1 MG TAB PO PRN (21:16)
[2019-10-20 06:10] LABS: Basophils # (auto) 0.02 K/uL (0-0.2); Basophils % (auto) 0.2 %; Eosinophils # (auto) 0.01 K/uL (0-0.5); Eosinophils % (auto) 0.1 %; Hemoglobin 7.8 g/dL (12.0-16.0); Immature Granulocytes # (auto) 0.05 K/uL (0.00-0.02); Immature Granulocytes % (auto) 0.6 %; Lymphocytes # (auto) 1.13 K/uL (1.2-3.4); Lymphocytes % (auto) 13.5 %; Mean Corpuscular Hgb Conc 32.5 g/dL (32-36); Mean Corpuscular Volume 89.2 fL (80-100); Monocytes # (auto) 1.46 K/uL (0.11-0.59); Monocytes % (auto) 17.5 %; Neutrophils # (auto) 5.67 K/uL (1.4-6.5); Neutrophils % (auto) 68.1 %; Platelet Count 459 K/uL (130-400); RDW Coefficient of Variation 15.9 % (11.5-14.5); Red Blood Count 2.69 M/uL (4.2-5.4); White Blood Count 8.34 K/uL (4.8-10.8)
[2019-10-20 06:40] LABS: BUN Creatinine Ratio 9.2 (10-20); Calcium 7.9 mg/dl (8.5-10.1); Creatinine Clr Calc Pharmacy 85.7 ml/min; Est GFR (African American) 112.8; Est GFR (Non-African American) 97.3; Magnesium 1.4 mg/dl (1.8-2.4); Potassium 3.4 mmol/L (3.5-5.1)
[2019-10-20 06:44] LABS: RBC Morphology Unremarkable; Toxic Granulation Occasional; Toxic Vacuolation Occasional
[2019-10-20 06:49] LABS: Phosphorus 2.4 mg/dl (2.5-4.9)
[2019-10-20] MEDS: POTASSIUM CHLORIDE 20 MEQ TABCR PO SCH (07:32)
[2019-10-20] MEDS ORDERED: POTASSIUM PHOS 3 MMOL/1 ML INFUSION IV STA (07:50)
[2019-10-20] MEDS ORDERED: CALCIUM GLUCONATE 10% 1,000 MG in SODIUM CHLORIDE 0.9% 50 ML IV ONE (08:00)
[2019-10-20] MEDS ORDERED: POTASSIUM PHOSPHATE 21 MMOL in SODIUM CHLORIDE 0.9% 500 ML IV ONE (08:00)
[2019-10-20] MEDS: OXYCODONE HCL IR 5 MG TAB (IMMEDIATE RELEASE) PO PRN ×2 (08:08→17:38)
[2019-10-20] MEDS: METOPROLOL SUCC 25MG EXT REL TAB PO SCH (08:10)
[2019-10-20] MEDS: MAGNESIUM SULFATE / D5W 1 GM/100 ML BAG IV SCH ×3 (08:29→10:42)
[2019-10-20] MEDS: POTASSIUM CHLORIDE 10 MEQ TABCR PO SCH ×2 (09:37→20:28)
[2019-10-20] MEDS: ENOXAPARIN INJ 40 MG/0.4 ML SYR SQ SCH (09:42)
[2019-10-20] MEDS: CITALOPRAM 40 MG TAB PO SCH (10:42)
[2019-10-20] MEDS: MULTIVITAMIN TAB PO SCH (10:43)
[2019-10-20] MEDS: CYANOCOBALAMIN 500 MCG TABLET (VITAMIN B-12) PO SCH (10:43)
[2019-10-20] MEDS: PANTOprazole 40 MG TAB PO SCH (10:43)
[2019-10-20] MEDS: LACTOBACILLUS ACIDOPHILUS 1 GM PACK PO SCH (10:43)
[2019-10-20] MEDS: PYRIDOXINE HCL 50 MG TAB PO SCH (10:44)
[2019-10-20] MEDS: ONDANSETRON INJ 2 MG/ML 2 ML VIAL IV PRN (10:46)
--- NOTE | 2019-10-20 13:02 | Hospitalist Progress Note ---
Date of Service October 20, 2019 Assessment & Plan (1) Nausea vomiting and diarrhea: Presented with 2 days of N/V/D, non-bloody. Last chemotherapy 3 weeks ago. Did take abx 2 weeks ago for UTI. - Nausea had resolved by 10/19. - Continue Marinol PRN - Continue Zofran PRN - Diarrhea continues -> Not able to obtain a sample yet (2) Endometrial cancer: Has not been able to receive chemo for several weeks due to lab abnormalities. Is considering d/c chemo and plans to d/w her oncology team next week. - Baseline abdominal pain related to mets, will hold on imaging. (3) Anemia: Hgb 10.7 on admission. Dropped to 7.8 which appears close to her baseline. S/p PRBC last week for Hb 6.0. - Monitor (4) Hypertension: BPs 125/80 today. - Continue home metoprolol (5) S/P ureteral stent placement: Has indwelling right ureteral stent just changed out again in September 2019, for rt hydronephrosis - stays in for 3 months. - Follows with Urology at [place] - UA contaminated, does not appear infected. Urine culture from 10/07 grew multiple spc. (6) Hyperlipidemia: - Continue home pravastatin (7) Weakness: Related to poor PO intake and chemo, also n/v/d related to chemo. - PT/OT ordered - OT eval on 10/19 indicated no needs; PT pending (8) Depression: No concerns for inpatient needs. - Continue home Celexa 40mg daily & Ativan PRN (9) Pain management: States she will need rx on d/c for pain control as she is out at home. (10) DVT prophylaxis: Lovenox 40 mg SQ daily Admission and Anticipated Discharge Date Admission Date: October 18, 2019 Anticipated date of discharge: 10/20/19 Subjective Doing well today. She is not really having any more nausea or vomiting. She does reports continued loose stool. Reports no fevers/chills, chest pain, shortness of breath, abdominal pain, nausea, or vomiting. Physical Exam Constitutional: WD/WN, vitals as above Eyes: EOM intact bilaterally; no conjunctival abnormality ENMT: external ear and nose normal, oropharynx normal Neck: trachea midline, no thyromegaly normal visual inspection Respiratory: normal respiratory effort, lungs clear to auscultation no respiratory distress Cardiovascular: RRR, no murmur, no edema Gastrointestinal (Abdomen): Inspection/Auscultation: abdomen normal to inspection; abdomen not distended Musculoskeletal: no cyanosis or clubbing, extremities motor strength 5/5 Skin: no rashes, warm and dry Neurologic: moves all extremities and awake Psychiatric: Orientation: alert, oriented to person and cooperative Results & Data Results & Data ([facility]) Vital Signs (Past 12 Hours) Vital Signs Temp Pulse Resp BP Pulse Ox 10/20/19 11:20 36.5 C 73 16 124/82 96 10/20/19 07:15 37.0 C 76 16 113/68 96 10/20/19 04:00 37 C 72 20 106/64 97 PG Care Time/CCT Total # of Minutes Spent Total Time Spent with Patient: Total time spent is greater than 50% in coordination of care (as documented) at patient's floor/unit and/or counseling patient: Coding Level of Care Code 53590 Subseq Hosp Care Lvl 3 Diagnoses Nausea vomiting and diarrhea R11.2; R19.7 Endometrial cancer C54.1 Anemia D64.81; T45.1X5A Anemia type: other cause Other causes of anemia: antineoplastic chemotherapy Hypertension I10 Hypertension type: essential hypertension S/P ureteral stent placement Z96.0 Hyperlipidemia E78.5 Hyperlipidemia type: unspecified Weakness R53.1 Depression F32.9 Pain management R52 DVT prophylaxis Z29.9 (1) Anemia Anemia type: other cause Other causes of anemia: antineoplastic chemotherapy Qualified Code(s): D64.81 - Anemia due to antineoplastic chemotherapy; T45.1X5A - Adverse effect of antineoplastic and immunosuppressive drugs, initial encounter (2) Hyperlipidemia Hyperlipidemia type: unspecified Qualified Code(s): E78.5 - Hyperlipidemia, unspecified (3) Hypertension Hypertension type: essential hypertension Qualified Code(s): I10 - Essential (primary) hypertension
[2019-10-20] MEDS: HEPARIN 100 UNIT/ML 5ML FLUSH FLUSH PRN (14:03)
[2019-10-20] MEDS: POTASSIUM CHLORIDE 10 MEQ in D5W AND NSS 1,000 ML IV SCH (14:43)
[2019-10-20] MEDS: LORazepam 1 MG TAB PO PRN (20:27)
[2019-10-20] MEDS: PRAVASTATIN SOD 10 MG TAB PO SCH (20:28)
[2019-10-21] MEDS: HEPARIN 100 UNIT/ML 5ML FLUSH FLUSH PRN ×2 (05:43→10:16)
[2019-10-21 06:25] LABS: Hematocrit (blood only) 24.3 % (37-47); Mean Corpuscular Hemoglobin 28.9 pg (25-34); Mean Corpuscular Hgb Conc 32.9 g/dL (32-36); Mean Corpuscular Volume 87.7 fL (80-100); Platelet Count 460 K/uL (130-400); RDW Coefficient of Variation 16.1 % (11.5-14.5); RDW Standard Deviation 50.9 fL (36.4-46.3); Red Blood Count 2.77 M/uL (4.2-5.4); White Blood Count 9.91 K/uL (4.8-10.8)
[2019-10-21 06:36] LABS: INR 1.3 (0.9-1.1); Prothrombin Time 13.5 Seconds (9.0-12.0)
[2019-10-21 07:07] LABS: Albumin Globulin Ratio 0.5 (0.9-2); Albumin Level 1.8 gm/dl (3.4-5.0); BUN Creatinine Ratio 8.7 (10-20); Bilirubin,Total 0.3 mg/dl (0.2-1); Creatinine Clr Calc Pharmacy 81.8 ml/min; Est GFR (African American) 111.1; Est GFR (Non-African American) 95.8; Globulin 3.4 gm/dl (2.5-4.0); Magnesium 1.6 mg/dl (1.8-2.4); Phosphorus 2.5 mg/dl (2.5-4.9); Total Protein 5.2 gm/dl (6.4-8.2)
[2019-10-21] MEDS ORDERED: CALCIUM GLUCONATE 10% 1,000 MG in SODIUM CHLORIDE 0.9% 50 ML IV ONE (07:30)
[2019-10-21] MEDS: MAGNESIUM SULFATE / D5W 1 GM/100 ML BAG IV SCH ×2 (08:00→09:09)
[2019-10-21] MEDS: OXYCODONE HCL IR 5 MG TAB (IMMEDIATE RELEASE) PO PRN (08:00)
[2019-10-21] MEDS: POTASSIUM CHLORIDE 20 MEQ TABCR PO SCH (08:01)
[2019-10-21] MEDS: METOPROLOL SUCC 25MG EXT REL TAB PO SCH (08:01)
[2019-10-21] MEDS: ENOXAPARIN INJ 40 MG/0.4 ML SYR SQ SCH (08:01)
[2019-10-21] MEDS: CYANOCOBALAMIN 500 MCG TABLET (VITAMIN B-12) PO SCH (11:51)
[2019-10-21] MEDS: MULTIVITAMIN TAB PO SCH (11:51)
[2019-10-21] MEDS: CITALOPRAM 40 MG TAB PO SCH (11:51)
[2019-10-21] MEDS: PYRIDOXINE HCL 50 MG TAB PO SCH (11:51)
[2019-10-21] MEDS: PANTOprazole 40 MG TAB PO SCH (11:51)
[2019-10-21] MEDS: LACTOBACILLUS ACIDOPHILUS 1 GM PACK PO SCH (11:52)
--- NOTE | 2019-10-21 12:57 | Discharge Summary ---
Date of Service October 21, 2019 Admission HPI Per Admitting Provider 59 y/o F c/o n/v/d. Pt states that she has had ongoing n/v, which is typical for her with her chemo for endometrial cancer. Her last chemo was about 3 weeks ago. She states that she has been in weekly to attempt chemo but that "my numbers are always off and I can't have it". Her last attempt was last Sunday. She states she had to get blood about 3 weeks ago. She states that she has continued with ongoing n/v and decreased appetite, but also developed diarrhea about 2 days ago. She has ongoing abd pain which is related to her cancer status and mets. It is the same as usual. She has had increased urination since have a R ureteral stent placed 3 weeks ago. This is related to a surgical complication. She states she is "wiped out" and does not feel safe to go home because she is so weak. She has not been able to eat anything. Pt denies fever, SOB, chest pain, LE pain or swelling. Pt is very frustrated with her current course of chemo. She states she is considering stopping chemo and planned to discuss this at her appt on Sunday. Principal Diagnosis Diarrhea causing electrolytes abnormalities Discharge Exam Constitutional WD/WN, vitals as above Eyes EOM intact bilaterally; no conjunctival abnormality ENMT external ear and nose normal, oropharynx normal Neck trachea midline, no thyromegaly normal visual inspection Respiratory normal respiratory effort, lungs clear to auscultation no respiratory distress Cardiovascular RRR, no murmur, no edema Gastrointestinal (Abdomen) Inspection/Auscultation: abdomen normal to inspection; abdomen not distended Musculoskeletal no cyanosis or clubbing, extremities motor strength 5/5 Skin no rashes, warm and dry Neurologic moves all extremities and awake Psychiatric Orientation: alert, oriented to person and cooperative Discharge Data Allergies Allergy/AdvReac Type Severity Reaction Status Date / Time olanzapine AdvReac Severe out of Unverified 10/18/19 16:22 body feeling and mind wondering naproxen AdvReac Mild EYELID Verified 10/18/19 16:22 SWELLING Consultations 10/18/19 17:56 ED Decision to Admit Stat 10/18/19 19:44 Consult Case Management - Discharge Planning Routine Hospital Course (1) Nausea vomiting and diarrhea: Presented with 2 days of N/V/D, non-bloody. Last chemotherapy 3 weeks ago. Did take abx 2 weeks ago for UTI. - Nausea had resolved by 10/19. Diarrhea resolved by 10/19 as well. No C. diff was sent as she was unable to provide a sample. - Continue Marinol PRN - Continue Zofran PRN (2) Endometrial cancer: Has not been able to receive chemo for several weeks due to lab abnormalities. Is considering d/c chemo and plans to d/w her oncology team next week. - Baseline abdominal pain related to mets, will hold on imaging. (3) Anemia: Hgb 10.7 on admission. Dropped to 7.8 which appears close to her baseline. S/p PRBC last week for Hb 6.0. - Monitor (4) Hypertension: BPs 125/80 today. - Continue home metoprolol (5) S/P ureteral stent placement: Has indwelling right ureteral stent just changed out again in September 2019, for rt hydronephrosis - stays in for 3 months. - Follows with Urology at [place] - UA contaminated, does not appear infected. Urine culture from 10/07 grew multiple spc. (6) Hyperlipidemia: - Continue home pravastatin (7) Weakness: Related to poor PO intake and chemo, also n/v/d related to chemo. - PT/OT ordered -> Recommend home. (8) Depression: No concerns for inpatient needs. - Continue home Celexa 40mg daily & Ativan PRN (9) Pain management: States she will need rx on d/c for pain control as she is out at home. (10) DVT prophylaxis: Lovenox 40 mg SQ daily Total Time Total Time Spent Total Time Spent (In Minutes): 35 Discharge Plan Discharge Items Patient Disposition: Home - Home Health Services Reason For Visit: ELECTROLYTE ABNORMALITIES Discharge Diagnosis: Diarrhea causing electrolyte abnormalities Condition on Discharge: Fair Activity: Resume your previous activity Non-emergency contact: Primary Care Provider and Oncologist Call non-emergency contact if: your symptoms worsen, your pain is worsening and your temperature is above 101 Follow-up/Referrals: Yumiko Edwards MD [Primary Care Provider] - Wei Pendleton MD [Surgeon] - 10/22/19 8:15 am (Please, follow up with Dr. Wei Pendleton TOMORROW, SundayOctober 21, at 8:30 am (labs at 8:15 am). If you need to change this appointment, call the office at [phone] or [phone].) Diet: Heart Healthy Addtl Attending Provider Instructions: You were admitted to the hospital with diarrhea, nausea, and vomiting that caused your electrolytes to get out of whack. We gave you significant quantities of the electrolytes, and your nausea, vomiting, and diarrhea resolved. Please follow up with your oncologist, Dr. Pendleton, as we suspect your cancer and chemotherapy played a role in these symptoms. If your diarrhea comes back, please contact Dr. Pendleton's office and use Imodium to help reduce the diarrhea. Pending Studies at Discharge: No Stand-Alone Forms: [facility] [employer], Smoking Cessation Medications and DC Order Prescriptions: New dronabinol 2.5 mg Capsule 2.5 mg PO TID PRN (Reason: nausea and vomiting) Qty: 30 RF: 0 Continued citalopram 20 mg tablet 40 mg PO QDL Qty: 180 RF: 1 ondansetron HCl 8 mg tablet 8 mg PO Q8H PRN (Reason: nausea and vomiting) RF: 0 potassium chloride 20 mEq tablet extended release 20 meq PO QAM RF: 0 oxycodone 10 mg tablet 10 mg PO Q4H PRN (Reason: Pain) Qty: 30 RF: 0 lorazepam 1 mg Tablet 1 mg PO Q6H PRN (Reason: Anxiety) Qty: 20 RF: 0 multivitamin Tablet 1 tab PO QDL RF: 0 cyanocobalamin (vitamin B-12) 500 mcg Tablet 500 mcg PO QDL RF: 0 Vitamin B-6 50 mg Capsule 50 mg PO QDL RF: 0 Probiotic 3 billion cell Capsule 3,000 mmu cells PO QDL RF: 0 pravastatin 10 mg tablet 10 mg PO HS RF: 0 metoprolol succinate 25 mg tablet extended release 24 hr 25 mg PO QAM RF: 0 omeprazole 20 mg capsule,delayed release(DR/EC) 20 mg PO QDL RF: 0 metoclopramide HCl [Reglan] 10 mg tablet 10 mg PO TID PRN (Reason: nausea and vomiting) Qty: 14 RF: 0 Discontinued magnesium oxide 400 mg magnesium capsule 400 mg PO QAM RF: 0 sennosides [senna] 8.6 mg tablet 17.2 mg PO HS PRN (Reason: Constipation) RF: 0 docusate sodium [Colace] 100 mg Capsule 100 mg PO HS PRN (Reason: Constipation) RF: 0 Discharge Orders: Discharge Order (Routine); Ordered 10/21/19 Ordered By: Terry Sneed Admission Data Admit Date/Time: 10/18/19 18:50 Attending Provider: Terry Sneed Admit Provider: Gloria Nicole Primary Care Provider: Yumiko Edwards Other Providers: [facility] ; Terry Sneed Other Interventions: Discharge Summary Assessment (RN) Last Done: 10/21/19 11:36 DC Date/Time DO NOT enter until pt leaves facility: 10/21/19 12:19 Coding Level of Care Code D/C Day Management >30 mins Diagnoses Nausea vomiting and diarrhea R11.2; R19.7 Endometrial cancer C54.1 Anemia D64.81; T45.1X5A Anemia type: other cause Other causes of anemia: antineoplastic chemotherapy Hypertension I10 Hypertension type: essential hypertension S/P ureteral stent placement Z96.0 Hyperlipidemia E78.5 Hyperlipidemia type: unspecified Weakness R53.1 Depression F32.9 Pain management R52 DVT prophylaxis Z29.9
== END 2019-10-21 12:19 | disposition home or self-care (01) | DRG 392 ==
LOC: ED 15:13 → 2W 18:50 → SUATTDRO 18:50 → 2W 19:23

== ENCOUNTER 2019-11-05 18:29 | Inpatient (IN) ==
[2019-11-05] MEDS ORDERED: SODIUM CHLORIDE 0.9% 1000ML 1,000 ML IV SCH (18:45)
--- NOTE | 2019-11-05 18:49 | Emergency Department Note ---
Impression & Plan Weakness, Cancer, uterine, Anemia, Acute hypokalemia, Hematuria, Acute UTI ED Provider Note NAME: NICHOL VALENZUELA AGE: 59 SEX: F : 1960 ARRIVES VIA: Walk-In INFORMANT: Patient ED PROVIDER(S): Zelalem Bergman DO CHIEF COMPLAINT: Mechanical fall with hematuria HPI: Patient is a 59-year-old female with uterine and ovarian cancer who was getting out of bed around 12:00 today. She tripped and fell to her right side. She notes she hit her head. She denies loss of consciousness as she remembers the entire event but notes that she was tara a little bit. She admits to a mild headache currently. No neck pain. She denies any chest pain or shortness of breath. She notes that since then she has been having hematuria. She had a right ureter stent placed within the past month at [facility]. She denies any vaginal bleeding. She denies any dark tarry stools. She denies any focal weakness but does note that she feels weak all over. She also denies taking any blood thinners. Last round of chemo was 2 weeks ago. She notes that she has been so weak tonight that she cannot walk. ROS: See above HPI for pertinent positives & negatives. A total of 10 systems reviewed and were otherwise negative. PAST MEDICAL HISTORY:See Below PAST SURGICAL HISTORY:See Below FAMILY HISTORY:See Below SOCIAL HISTORY:See Below HOME MEDICATIONS:See Below ALLERGIES:See Below VITALS:See Below PHYSICAL EXAMINATION: GENERAL: alert, chronically ill-appearing, cachectic, no acute distress, anxious HEAD: normal cephalic, atraumatic EYE EXAM: normal conjunctiva, PERRL and EOM's grossly intact OROPHARYNX: mucous membranes are dry CHEST: stable to compression anteriorly and posteriorly LUNGS: clear to auscultation. Normal chest wall mechanics HEART: no murmurs, S1 normal and S2 normal ABDOMEN: abdomen soft, non-tender, normo-active bowel sounds, no masses, no nancy ound or guarding. PELVIS: stable to compression anteriorly and posteriorly BACK: Back is symmetrical on inspection and there is no deformity, no midline tenderness, no CVA tenderness. UPPER EXTREMITIES: full active and passive range of motion of all joints without tenderness to palpation LOWER EXTREMITIES: full active and passive range of motion of all joints without tenderness to palpation NEURO EXAM: Normal sensorium, cranial nerves II-XII intact, normal speech, no weakness of arms, no weakness of legs. No drift. Yomalb-he-dovt intact. Hmlg-ft-etuk intact. Rapid alternating movements of upper extremities intact. GCS: 15. MEDICAL DECISION MAKING: Patient is a 59-year-old female past medical history of metastatic cancer secondary to ovarian and uterine cancer that presents the ER for weakness and mechanical fall associated with hematuria. IV was established blood work was obtained. Labs show a leukocytosis of 14,000. Hemoglobin at 8.3 consistent with previous. INR was at 1.5. Potassium low at 2.9. Mild hyponatremia at 129. Patient was given oral potassium as well as IV fluids x2 L. She was significantly clinically dry. Bilirubin was slightly elevated at 1.4 with a transaminitis in the 100s. Troponin was negative. Albumin significantly low at 1.9 as expected. Patient was slightly hypotensive in the 90s. UA does suggest a UTI with white cells, bacteria and leukocytes. Patient was given IV the Rocephin. She was updated bedside. She was discussed with the hospitalist for observation. Triage Nursing notes reviewed. Prior medical records reviewed Vital Signs: reviewed and remarkable for hypotension Differential diagnosis: Differential diagnoses include major intracranial, cervical, spinal, thoracic, abdominal, pelvic and neurologic injury. Fracture, contusion, sprain, strain, laceration, abrasions included as well. ER treatment provided: See below Diagnostics interpreted by me: ECG: Sinus rhythm rate 86 PVCs Poor baseline Prolonged QTC Nonspecific ST wave changes in the lateral leads Cardiac Monitoring: Sinus rhythm rate of 91 Laboratory studies: As stated above and show below. Imaging studies: CT abdomen pelvis shows:IMPRESSION: 1. Difficult scan to interpret as interval scans compared to the prior study are not available. 2. Findings highly suspect for interval development of diffuse hepatic metastatic change. 3. Interval placement of a right ureteral stent with the proximal aspect of the stent positioned at the ureteropelvic junction 4. right renal hydronephrosis suggesting potential obstructive change due to the low position of the stent with secondary obstructive change. 5. probable soft tissue mass base of the bladder with potential extension into the distal right ureter. 6. Moderate free fluid within the pelvic cul-de-sac with bowel wall thickening of several low pelvic bowel loops. 7. This potentially indicates pelvic metastatic change. 8. Mild soft tissue contusion versus postoperative soft tissue change low right anterior abdominal/pelvic wall. 9. Considerable increase in size of a previously described presacral soft tissue density. This now demonstrates central necrosis CT head was negative for any acute fractures or bleeds. CT cervical spine was negative for any acute fractures. Consultation(s): Discussed with Dr. Aneudy Hernandez for further evaluation. ED COURSE: Procedures: none Critical Care: None Past Med/Surg History Medical History (Updated 11/05/19 @ 22:31 by Zelalem Bergman DO) Anxiety (Chronic) Cancer associated pain Endometrial carcinoma (Resolved) Hyperlipidemia Hypertension Peritoneal metastases Uterine cancer Surgical History (Updated 10/29/19 @ 15:37 by THOM Perez) History of carpal tunnel surgery History of hysterectomy History of oral surgery History of removal of cyst (~2014) left upper chest epidermoid cyst History of surgery on wrist History of tonsillectomy S/P appendectomy 05/19/19 Dr. 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 Beliefs That Will Affect Care: None marital status: Current Living Situation: Spouse current occupational status: disabled Feels Safe at Home: Yes Smoking Status: Never smoker Hx Alcohol Use: No Hx Substance Use: No Childhood Exposure to Second-Hand Smoke: No Dental Care, Regularly: Yes Physical Activity Frequency: Daily Seatbelt Use: always Sunscreen Use: Yes Allergies Allergies Allergy/AdvReac Type Severity Reaction Status Date / Time olanzapine AdvReac Severe out of Unverified 11/05/19 19:26 body feeling and mind wondering naproxen AdvReac Mild EYELID Verified 11/05/19 19:26 SWELLING Home Meds Home Medications Medication Instructions Recorded Confirmed Probiotic 3,000 mmu cells PO QDL 05/18/19 11/05/19 Vitamin B-6 50 mg PO QDL 05/18/19 11/05/19 cyanocobalamin (vitamin B-12) 500 mcg PO QDL 05/18/19 11/05/19 multivitamin 1 tab PO QDL 05/18/19 11/05/19 metoprolol succinate 25 mg PO QAM 09/09/19 11/05/19 pravastatin 10 mg PO HS 09/09/19 11/05/19 ondansetron HCl 8 mg tablet 8 mg PO Q8H PRN tab 09/18/19 11/05/19 potassium chloride 20 meq PO QAM 10/18/19 11/05/19 fentanyl 12 mcg/hr transdermal 12 mcg TD [id number] 10/29/19 11/05/19 patch loratadine 10 mg tablet 10 mg PO DAILY 10/29/19 11/05/19 dronabinol 5 mg PO BID 11/05/19 11/05/19 Previous Rx's Medication Instructions Recorded metoclopramide HCl [Reglan] 10 mg PO TID PRN #14 tab 09/13/19 citalopram 20 mg tablet 40 mg PO QDL #180 tab 10/13/19 lorazepam 1 mg PO Q6H PRN #20 tab 10/21/19 oxycodone 10 mg PO Q4H PRN #30 tab 10/21/19 omeprazole 20 mg capsule,delayed 20 mg PO DAILY #90 cap 10/27/19 release Results & Data (ED) Vital Signs Vital Signs - 24 hr 11/05/19 18:30 11/05/19 19:00 11/05/19 19:30 Temperature 36.5 C Temperature Source Oral Pulse Rate 72 92 H 86 Pulse Rate [Apical] 92 H Pulse Rhythm Regular Pulse Rhythm [Apical] Regular Pulse Strength [Apical] Normal Respiratory Rate 18 22 19 Respiratory Effort / Characteristics Non-Labored Non-Labored Spontaneous Respiratory Depth Normal Normal Respiratory Pattern Regular Blood Pressure 98/67 L 140/83 Blood Pressure [Left Arm] 122/86 Blood Pressure Mean 77 105 Blood Pressure Mean [Left Arm] 98 Blood Pressure Position [Left Arm] Lying Pulse Oximetry 99 100 99 Oxygen Delivery Method Room Air Room Air Room Air Sepsis Recent Fever Within 48 Hours No Sepsis New/Unexplained Change in Mental Status No Sepsis Action Taken by Nursing No Action Required 11/05/19 20:37 11/05/19 21:00 11/05/19 21:30 Temperature Temperature Source Pulse Rate 89 87 89 Pulse Rate [Apical] Pulse Rhythm Pulse Rhythm [Apical] Pulse Strength [Apical] Respiratory Rate 23 24 26 H Respiratory Effort / Characteristics Respiratory Depth Respiratory Pattern Blood Pressure 122/81 113/75 117/73 Blood Pressure [Left Arm] Blood Pressure Mean 85 86 85 Blood Pressure Mean [Left Arm] Blood Pressure Position [Left Arm] Pulse Oximetry 97 Oxygen Delivery Method Room Air Room Air Room Air Sepsis Recent Fever Within 48 Hours Sepsis New/Unexplained Change in Mental Status Sepsis Action Taken by Nursing 11/05/19 22:00 Temperature Temperature Source Pulse Rate 92 H Pulse Rate [Apical] Pulse Rhythm Pulse Rhythm [Apical] Pulse Strength [Apical] Respiratory Rate 26 H Respiratory Effort / Characteristics Respiratory Depth Respiratory Pattern Blood Pressure 139/85 Blood Pressure [Left Arm] Blood Pressure Mean 96 Blood Pressure Mean [Left Arm] Blood Pressure Position [Left Arm] Pulse Oximetry Oxygen Delivery Method Sepsis Recent Fever Within 48 Hours Sepsis New/Unexplained Change in Mental Status Sepsis Action Taken by Nursing Laboratory Data Result diagrams: 11/05/19 19:05 11/05/19 19:05 Lab Results 11/05/19 11/05/19 11/05/19 Range/Units 18:50 19:05 19:05 WBC 14.38 H (4.8-10.8) K/uL RBC 2.90 L (4.2-5.4) M/uL Hgb 8.3 L (12.0-16.0) g/dL Hct 24.9 L (37-47) % MCV 85.9 (80-100) fL MCH 28.6 (25-34) pg MCHC 33.3 (32-36) g/dL RDW Std Deviation 54.1 H (36.4-46.3) fL RDW Coeff of Abilio 17.7 H (11.5-14.5) % Plt Count 365 (130-400) K/uL MPV 9.2 (7.4-10.4) fL Immature Gran % (Auto) 0.3 % Neut % (Auto) 80.2 % Lymph % (Auto) 10.9 % [place] % (Auto) 8.4 % Eos % (Auto) 0.1 % Baso % (Auto) 0.1 % Immature Gran # (Auto) 0.04 H (0.00-0.02) K/uL Neut # (Auto) 11.54 H (1.4-6.5) K/uL Lymph # (Auto) 1.57 (1.2-3.4) K/uL [place] # (Auto) 1.21 H (0.11-0.59) K/uL Eos # (Auto) 0.01 (0-0.5) K/uL Baso # (Auto) 0.01 (0-0.2) K/uL PT (9.0-12.0) Seconds INR (0.9-1.1) Sodium 128 L (136-145) mmol/L Potassium 2.9 L (3.5-5.1) mmol/L Chloride 100 (98-107) mmol/L Carbon Dioxide 22 (21-32) mmol/L Anion Gap 6.0 (3-11) BUN 12 (7-18) mg/dl Creatinine 1.00 (0.6-1.2) mg/dl Est Cr Clr Drug Dosing Not Reportable Est GFR ( Amer) 70.4 Est GFR (Non-Af Amer) 60.8 BUN/Creatinine Ratio 12.1 (10-20) Glucose 117 H (70-99) mg/dl Calcium 8.5 (8.5-10.1) mg/dl Total Bilirubin 1.4 H (0.2-1) mg/dl AST 150 H (15-37) U/L ALT 101 H (12-78) U/L Alkaline Phosphatase 975 H (45-117) U/L Troponin I < 0.015 (0-0.045) ng/ml Total Protein 6.6 (6.4-8.2) gm/dl Albumin 1.9 L (3.4-5.0) gm/dl Globulin 4.7 H (2.5-4.0) gm/dl Albumin/Globulin Ratio 0.4 L (0.9-2) Urine Color Red Urine Appearance Turbid A (Clear) Urine pH 7.0 (4.5-7.5) Ur Specific [place] 1.032 H (1.000-1.030) Urine Protein 4+ H (Negative) Urine Glucose (UA) Negative (Negative) Urine Ketones Trace H (Negative) Urine Blood 3+ H (Negative) Urine Nitrite Negative (Negative) Urine Bilirubin Negative (Negative) Urine Urobilinogen Negative (Negative) Ur Leukocyte Esterase 1+ H (Negative) Urine RBC >30 H (0-4) /hpf Urine WBC 10-30 H (0-5) /hpf Ur Epithelial Cells 0-5 (0-5) /lpf Urine Bacteria 1+ H (Negative) 11/05/19 Range/Units 19:05 WBC (4.8-10.8) K/uL RBC (4.2-5.4) M/uL Hgb (12.0-16.0) g/dL Hct (37-47) % MCV (80-100) fL MCH (25-34) pg MCHC (32-36) g/dL RDW Std Deviation (36.4-46.3) fL RDW Coeff of Abilio (11.5-14.5) % Plt Count (130-400) K/uL MPV (7.4-10.4) fL Immature Gran % (Auto) % Neut % (Auto) % Lymph % (Auto) % [place] % (Auto) % Eos % (Auto) % Baso % (Auto) % Immature Gran # (Auto) (0.00-0.02) K/uL Neut # (Auto) (1.4-6.5) K/uL Lymph # (Auto) (1.2-3.4) K/uL [place] # (Auto) (0.11-0.59) K/uL Eos # (Auto) (0-0.5) K/uL Baso # (Auto) (0-0.2) K/uL PT 15.2 H (9.0-12.0) Seconds INR 1.5 H (0.9-1.1) Sodium (136-145) mmol/L Potassium (3.5-5.1) mmol/L Chloride (98-107) mmol/L Carbon Dioxide (21-32) mmol/L Anion Gap (3-11) BUN (7-18) mg/dl Creatinine (0.6-1.2) mg/dl Est Cr Clr Drug Dosing Est GFR ( Amer) Est GFR (Non-Af Amer) BUN/Creatinine Ratio (10-20) Glucose (70-99) mg/dl Calcium (8.5-10.1) mg/dl Total Bilirubin (0.2-1) mg/dl AST (15-37) U/L ALT (12-78) U/L Alkaline Phosphatase (45-117) U/L Troponin I (0-0.045) ng/ml Total Protein (6.4-8.2) gm/dl Albumin (3.4-5.0) gm/dl Globulin (2.5-4.0) gm/dl Albumin/Globulin Ratio (0.9-2) Urine Color Urine Appearance (Clear) Urine pH (4.5-7.5) Ur Specific [place] (1.000-1.030) Urine Protein (Negative) Urine Glucose (UA) (Negative) Urine Ketones (Negative) Urine Blood (Negative) Urine Nitrite (Negative) Urine Bilirubin (Negative) Urine Urobilinogen (Negative) Ur Leukocyte Esterase (Negative) Urine RBC (0-4) /hpf Urine WBC (0-5) /hpf Ur Epithelial Cells (0-5) /lpf Urine Bacteria (Negative) Administered Medications Ioversol (Optiray 320 100ml) 93 ml IV ONCE PRN PRN Reason: Interaction Checking Stop: 11/09/19 19:55 Last Admin: 11/05/19 19:57 Dose: 93 ml Documented by: [id number] Discontinued Medications Sodium Chloride (Nss 1000ml) 1,000 mls @ 999 mls/hr IV .Q1H1M GRACE Stop: 11/05/19 19:45 Last Infusion: 11/05/19 20:12 Dose: 0 mls/hr Documented by: [id number] Admin: 11/05/19 19:11 Dose: 999 mls/hr Documented by: [id number] Ceftriaxone Sodium (Rocephin) 1,000 mg in 50 mls @ 100 mls/hr IV NOW STA Stop: 11/05/19 20:05 Last Infusion: 11/05/19 20:34 Dose: 0 mls/hr Documented by: [id number] Admin: 11/05/19 20:04 Dose: 100 mls/hr Documented by: [id number] Lorazepam (Ativan) 1 mg SL NOW STA Stop: 11/05/19 19:21 Last Admin: 11/05/19 19:33 Dose: 1 mg Documented by: [id number] Potassium Chloride (Klor-Con M20) 40 meq PO NOW STA Stop: 11/05/19 19:37 Last Admin: 11/05/19 20:06 Dose: 40 meq Documented by: [id number] Discharge Plan Visit Data Chief Complaint: Fall Stated Complaint: FALL ED Provider: Zelalem Bergman Discharge Problem: Weakness, Cancer, uterine, Anemia, Acute hypokalemia, Hematuria, Acute UTI Forms Stand Alone Forms: [facility] Prescriptions Prescriptions: No Action citalopram 20 mg tablet 40 mg PO QDL Qty: 180 RF: 1 omeprazole 20 mg capsule,delayed release(DR/EC) 20 mg PO DAILY Qty: 90 RF: 1 loratadine 10 mg tablet 10 mg PO DAILY RF: 0 fentanyl [Duragesic] 12 mcg/hr patch 72 hour 12 mcg TD [id number] RF: 0 ondansetron HCl 8 mg tablet 8 mg PO Q8H PRN (Reason: nausea and vomiting) RF: 0 potassium chloride 20 mEq tablet extended release 20 meq PO QAM RF: 0 oxycodone 10 mg tablet 10 mg PO Q4H PRN (Reason: Pain) Qty: 30 RF: 0 lorazepam 1 mg Tablet 1 mg PO Q6H PRN (Reason: Anxiety) Qty: 20 RF: 0 dronabinol 2.5 mg capsule 5 mg PO BID RF: 0 multivitamin Tablet 1 tab PO QDL RF: 0 cyanocobalamin (vitamin B-12) 500 mcg Tablet 500 mcg PO QDL RF: 0 Vitamin B-6 50 mg Capsule 50 mg PO QDL RF: 0 Probiotic 3 billion cell Capsule 3,000 mmu cells PO QDL RF: 0 pravastatin 10 mg tablet 10 mg PO HS RF: 0 metoprolol succinate 25 mg tablet extended release 24 hr 25 mg PO QAM RF: 0 metoclopramide HCl [Reglan] 10 mg tablet 10 mg PO TID PRN (Reason: nausea and vomiting) Qty: 14 RF: 0 Discharge Problem: Cancer, uterine Qualifiers: Malignant neoplasm of uterus location: unspecified site of uterus Qualified Code(s): C55 - Malignant neoplasm of uterus, part unspecified Anemia Qualifiers: Anemia type: unspecified type Qualified Code(s): D64.9 - Anemia, unspecified Hematuria Qualifiers: Hematuria type: unspecified type Qualified Code(s): R31.9 - Hematuria, unspecified
[2019-11-05 19:06] LABS: Blood Urine 3+ (Negative); Glucose Urine UA Negative (Negative); Ketones Urine Trace (Negative); Leukocyte Esterase Urine 1+ (Negative); Nitrite Urine Negative (Negative); Protein Urine 4+ (Negative); Specific Gravity Urine 1.032 (1.000-1.030); Urobilinogen Urine Negative (Negative)
[2019-11-05 19:15] LABS: Basophils # (auto) 0.01 K/uL (0-0.2); Basophils % (auto) 0.1 %; Eosinophils # (auto) 0.01 K/uL (0-0.5); Eosinophils % (auto) 0.1 %; Hematocrit (blood only) 24.9 % (37-47); Hemoglobin 8.3 g/dL (12.0-16.0); Immature Granulocytes # (auto) 0.04 K/uL (0.00-0.02); Immature Granulocytes % (auto) 0.3 %; Lymphocytes # (auto) 1.57 K/uL (1.2-3.4); Lymphocytes % (auto) 10.9 %; Mean Corpuscular Hemoglobin 28.6 pg (25-34); Mean Corpuscular Hgb Conc 33.3 g/dL (32-36); Mean Corpuscular Volume 85.9 fL (80-100); Mean Platelet Volume 9.2 fL (7.4-10.4); Monocytes # (auto) 1.21 K/uL (0.11-0.59); Monocytes % (auto) 8.4 %; Neutrophils # (auto) 11.54 K/uL (1.4-6.5); Neutrophils % (auto) 80.2 %; Platelet Count 365 K/uL (130-400); RDW Coefficient of Variation 17.7 % (11.5-14.5); RDW Standard Deviation 54.1 fL (36.4-46.3); White Blood Count 14.38 K/uL (4.8-10.8)
[2019-11-05] MEDS ORDERED: LORazepam 1 MG TAB SL STA (19:20)
[2019-11-05 19:22] LABS: Appearance Urine Turbid (Clear); Bilirubin Urine Negative (Negative); Color Urine Red; Ictotest Urine Negative (Negative)
[2019-11-05 19:24] LABS: INR 1.5 (0.9-1.1); Prothrombin Time 15.2 Seconds (9.0-12.0)
[2019-11-05 19:26] LABS: Epithelial Cell Urine 0-5 /lpf (0-5); RBC Urine >30 /hpf (0-4)
[2019-11-05 19:27] LABS: Bacteria Urine 1+ (Negative)
[2019-11-05 19:33] LABS: Alanine Aminotransferase 101 U/L (12-78); Albumin Level 1.9 gm/dl (3.4-5.0); Aspartate Aminotransferase 150 U/L (15-37); BUN Creatinine Ratio 12.1 (10-20); Blood Urea Nitrogen 12 mg/dl (7-18); Calcium 8.5 mg/dl (8.5-10.1); Carbon Dioxide 22 mmol/L (21-32); Chloride 100 mmol/L (98-107); Est GFR (African American) 70.4; Est GFR (Non-African American) 60.8; Glucose 117 mg/dl (70-99); Potassium 2.9 mmol/L (3.5-5.1); Sodium 128 mmol/L (136-145)
[2019-11-05] MEDS ORDERED: cefTRIAXone SODIUM 1,000 MG/50 ML BAG IV STA (19:36)
[2019-11-05] MEDS ORDERED: POTASSIUM CHLORIDE 20 MEQ TABCR PO STA (19:36)
[2019-11-05 19:37] LABS: Albumin Globulin Ratio 0.4 (0.9-2); Alkaline Phosphatase 975 U/L (45-117); Bilirubin,Total 1.4 mg/dl (0.2-1); Globulin 4.7 gm/dl (2.5-4.0); Total Protein 6.6 gm/dl (6.4-8.2); Troponin I < 0.015 ng/ml (0-0.045)
[2019-11-05] MEDS ORDERED: IOVERSOL 100ml IV PRN (19:56)
--- NOTE | 2019-11-05 20:01 | CT Scan Report ---
CT head/brain wo con CT DOSE: 1924.60 mGy.cm HISTORY: Trauma fall TECHNIQUE: Multiaxial CT images of the head were performed without the use of intravenous contrast. A dose lowering technique was utilized adhering to the principles of ALARA. Comparison: None. Findings: The paranasal sinuses and mastoid air cells are clear. The calvarium and skull base are int act. The ventricles and sulci are within normal limits. There is no mass, hematoma, midline shift, or acute infarct. Impression: No acute intracranial abnormality. ACT 112: Negative or not required by law. The above report was generated using voice recognition software. It may contain grammatical, syntax or spelling errors. Electronically signed by: Bharath Gilman M.D. 11/05/2019 8:00 PM
--- NOTE | 2019-11-05 20:03 | CT Scan Report ---
CT cervical spine wo con CT DOSE: HISTORY: Trauma fall TECHNIQUE: Multiaxial CT images of the cervical spine were performed and reformatted in the sagittal and coronal plane without the use of contrast. A dose lowering technique was utilized adhering to th e principles of ALARA. COMPARISON: None. FINDINGS: No fractures. No subluxation. Prevertebral soft tissues and the C1-C2 interval are intact. No pneumothorax. Considerable degenerative change throughout. IMPRESSION: No fractures within the cervical spine. Considerable degenerative change. ACT 112: Negative or not required by law. The above report was generated using voice recognition software. It may contain grammatical, syntax or spelling errors. Electronically signed by: Bharath Gilman M.D. 11/05/2019 8:02 PM
--- NOTE | 2019-11-05 20:17 | CT Scan Report ---
CT abd pelvis IV con only CT DOSE: HISTORY: Trauma fall w/ hematuria TECHNIQUE: Multiaxial CT images of the abdomen and pelvis were performed following the use of intrave nous contrast. A dose lowering technique was utilized adhering to the principles of ALARA. COMPARISON STUDY: 05/18/2019 FINDINGS: Lung bases are clear. Megaly with multiple lesions within the liver seen diffusely. Possibi lity of metastatic disease with underlying fatty infiltration is considered. Apparent interval placement of a right ureteral stent. The proximal aspect of the stent is at the rig ht ureteropelvic junction. There is moderate right renal hydronephrosis. It is not clear whether this was a pre-existing or relates to the low position of the stent with secondary obstructive changes. Progressive increase in size of the presacral soft tissue mass previously described. There is now lakisha sures 7 x 5 cm with evidence for central necrosis. There is moderate free fluid within the low pelvis. There is suggestion of there are findings of inte rval thickening of the right anterolateral rectus musculature. This potentially is postoperative alth ough that history is not provided. Soft tissue contusion of the subcutaneous fat is also considered. Suggestion of wall thickening of bowel loops within the low soft tissue pelvis. This raises the possi bility of localized infiltrative metastatic change. Possible soft tissue mass at the base of the bladder is has a maximum dimension of 4.1 cm. The bowel pattern is considered nonobstructive. IMPRESSION: 1. Difficult scan to interpret as interval scans compared to the prior study are not available. 2. Findings highly suspect for interval development of diffuse hepatic metastatic change. 3. Interval placement of a right ureteral stent with the proximal aspect of the stent positioned at t he ureteropelvic junction 4. right renal hydronephrosis suggesting potential obstructive change due to the low position of the stent with secondary obstructive change. 5. probable soft tissue mass base of the bladder with potential extension into the distal right urete r. 6. Moderate free fluid within the pelvic cul-de-sac with bowel wall thickening of several low pelvic bowel loops. 7. This potentially indicates pelvic metastatic change. 8. Mild soft tissue contusion versus postoperative soft tissue change low right anterior abdominal/pe lvic wall. 9. Considerable increase in size of a previously described presacral soft tissue density. This now de monstrates central necrosis ACT 112: Negative or not required by law. The above report was generated using voice recognition software. It may contain grammatical, syntax or spelling errors. Electronically signed by: Bharath Gilman M.D. 11/05/2019 8:16 PM
[2019-11-05] MEDS ORDERED: ENOXAPARIN INJ 40 MG/0.4 ML SYR SQ SCH (22:15)
--- NOTE | 2019-11-05 22:42 | History & Physical Report ---
Date of Service November 05, 2019 Assessment & Plan (1) Endometrial carcinoma: Pt is a 59yo with a PMHx significant for metastatic uterine and ovarian cancer, anxiety/depression, HTN and HLD who was admitted with a UTI and abnormal electrolytes after a fall at home. Fall -Pt with mechanical fall and brief LOC -fall could also be secondary to deconditioning/weakness/dehydration -Head CT and cervical spine CT unremarkable for acute fractures, no brain lesions noted on CT -MRI brain pending, pt states she has been having impaired memory UTI -Pt with dysuria and hematuria at home -UA with blood, leukocyte esterase, bacteria -Urine Cx pending -CT scan noted "R renal hydronephrosis suggestive of potential obstructive change due to low position of the stent with secondary obstructive changes" and "probable soft tissue mass at base of bladder with potential extension into distal R ureter" -Continue rocephin 1g daily -can consider urology consult; however pt has expressed desire for palliative approach and no more procedures. Metastatic uterine and ovarian cancer -Pt states she was diagnosed in September 2018 -s/p total abd hysterectomy, currently undergoing chemotherapy, last session 2 weeks ago -Has also had appendix removed for carcinoma -CT scan noted "interval development of diffuse hepatic metastatic change, probable soft tissue mass base of the bladder with potential extension into the distal right ureter, Moderate free fluid within the pelvic cul-de-sac with bowel wall thickening of several low pelvic bowel loops. This potentially indicates pelvic metastatic change. Considerable increase in size of a previously described presacral soft tissue density. This now demonstrates central necrosis" -Follows with Dr. Pendleton, and tonight voices desire for palliative approach -Consult placed to palliative care -Continue home oxycodone 10mg PO q4h PRN for pain -continue home zofran 8mg q8h PRN for nausea -continue home reglan 10mg PO q8h PRN for nausea as well Hyponatremia -Pt with Na+ level of 128 on admission -Serum osmolality of 278, urine osmolality of 462 and urine sodium of 62 -AM cortisol pending, TSH and reflex T4 pending -States she has been drinking more than usual at home for this unquenchable thirst( four 16oz water bottles) but no appetite -Cause possibly secondary to chemotherapy, medications, adrenal corticosteroid deficiency etc. -Nephrology consult placed -follow with AM labs Hypokalemia -Pt with K+ of 2.9 noted in ED -Received IV KCl 40mEq in ED -Additional one time 20mEq PO given on the floor -Scheduled BID administration of PO 20mEq KCl daily Hypomagnesemia -Noted Mag level of 1.3 -One time Mag Ox dose of 400mg PO given -Continue daily scheduled BID administration of PO Mag Ox 400mg GERD -continue home omepraxole 20mg daily HLD -continue home pravastatin 10mg qhs HTN continue home metoprolol succinate 25mg qam Insomnia/Anxiety/Depression -Pt tearful during my exam -States she has no plan to harm or desire to hurt herself but she is "tired of living like this" -continue home Ativan 1mg po q6h PRN -continue home citalopram 40mg -can consider switching to Remeron to also help with depression and stimulate appetite. FEN/GI: Heart Healthy diet DVT prophylaxis: SCDs CODE STATUS: DNR/DNI Dispo: med/Surg with tele History of Present Illness Primary Care Provider: Yumiko Edwards MD Pt is a 59yo with a PMHx significant for metastatic uterine and ovarian cancer, anxiety/depression, HTN and HLD who was admitted with a UTI and abnormal electrolytes after a fall at home. Pt states she was getting out of bed and twisted her ankle and had an unwitnessed fall. Feels like she had some LOC and feels like she is having some "foggy" memory after this fall. Is currently having a slight headache but denies any changes to vision. SHe has been having diarrhea and urinary incontinence requiring frequent changes of her underwear and pads. Also having some vaginal bleeding with abdominal pain. States she lives at home with her and recently had chemotherapy 2 weeks ago. States she is not actively suicidal but would not like to pursue further procedures, and states she is "tired of living like this". PMHX: as below PSH: total abdominal hysterectomy, appendectomy Meds: As below Allergies: olanzapine and naproxen SH: Never smoker, hasn't drank alcohol since her cancer diagnosis and uses medical marijuana, though she hasn't used it recently. Lives at home with her . Allergies Allergy/AdvReac Type Severity Reaction Status Date / Time olanzapine AdvReac Severe out of Unverified 11/05/19 19:26 body feeling and mind wondering naproxen AdvReac Mild EYELID Verified 11/05/19 19:26 SWELLING Home Medications Home Medications Medication Instructions Recorded Confirmed Type Probiotic 3,000 mmu cells PO QDL 05/18/19 11/05/19 History Vitamin B-6 50 mg PO QDL 05/18/19 11/05/19 History cyanocobalamin (vitamin B-12) 500 mcg PO QDL 05/18/19 11/05/19 History multivitamin 1 tab PO QDL 05/18/19 11/05/19 History metoprolol succinate 25 mg PO QAM 09/09/19 11/05/19 History pravastatin 10 mg PO HS 09/09/19 11/05/19 History metoclopramide HCl [Reglan] 10 mg PO TID PRN #14 tab 09/13/19 11/05/19 Rx ondansetron HCl 8 mg tablet 8 mg PO Q8H PRN tab 09/18/19 11/05/19 History citalopram 20 mg tablet 40 mg PO QDL #180 tab 10/13/19 11/05/19 Rx potassium chloride 20 meq PO QAM 10/18/19 11/05/19 History lorazepam 1 mg PO Q6H PRN #20 tab 10/21/19 11/05/19 Rx oxycodone 10 mg PO Q4H PRN #30 tab 10/21/19 11/05/19 Rx omeprazole 20 mg capsule,delayed 20 mg PO DAILY #90 cap 10/27/19 11/05/19 Rx release fentanyl 12 mcg/hr transdermal 12 mcg TD [id number] 10/29/19 11/05/19 History patch loratadine 10 mg tablet 10 mg PO DAILY 10/29/19 11/05/19 History dronabinol 5 mg PO BID 11/05/19 11/05/19 History Past Med/Surg History Medical History (Updated 11/06/19 @ 10:25 by Jaron Sommer MD) Anxiety (Chronic) Cancer associated pain Endometrial carcinoma (Resolved) Hyperlipidemia Hypertension Peritoneal metastases Uterine cancer Surgical History (Updated 10/29/19 @ 15:37 by THOM Perez) History of carpal tunnel surgery History of hysterectomy History of oral surgery History of removal of cyst (~2014) left upper chest epidermoid cyst History of surgery on wrist History of tonsillectomy S/P appendectomy 05/19/19 Dr. Santos Polanco- Open appendectomy Family History (Updated 10/29/19 @ 15:39 by THOM Perez) Mother Colorectal cancer Diabetes Cancer Rectal cancer Father Myocardial infarction Cardiac disorder Stroke Hypertension Grandmother Diabetes Family/Other Breast cancer Denies family history of Ovarian cancer Prostate cancer Social History Preferred Language: Austrian Communication Ability: Effective Visual Impairment: No Limitations Hearing Ability: Normal Overlock Collar Setter Required: No Beliefs That Will Affect Care: None marital status: Current Living Situation: Spouse and Family current occupational status: disabled Other Information That Helps Us Care for You: No Feels Safe at Home: Yes Safety Concerns: Feels Safe At This Time Smoking Status: Never smoker Do You Dip or Chew Tobacco: No ; Second Hand Exposure: Yes ; Tobacco Cessation Education Requested by Patient: No Hx Alcohol Use: No Hx Substance Use: No Childhood Exposure to Second-Hand Smoke: No Dental Care, Regularly: Yes Physical Activity Frequency: Daily Seatbelt Use: always Sunscreen Use: Yes Review of Systems Constitutional: + fatigue, + weakness, + anorexia and + insomnia; no fever, no chills and no sweats Eyes: no worsening vision Ear, Nose, Mouth, Throat: no nasal congestion and no sore throat Respiratory: no cough, no chest congestion and no dyspnea Cardiovascular: + syncope; no chest pain, no dyspnea, no palpitations and no edema Gastrointestinal: + abdominal pain, + nausea and + diarrhea/loose stools; no vomiting, no constipation and no blood in stools Genitourinary: + dysuria, + hematuria and + abnormal vaginal bleeding Musculoskeletal: + muscle weakness Neurologic: + syncope and + headache(s); no tingling and no numbness Psychiatric: + depression and + anxiety; no suicidal ideation Endocrine: + fatigue Allergy / Immunological: no cough, no dyspnea and no rash Physical Exam Physical Exam: General: Alert, oriented. No acute distress, laying bed Skin: No noted rashes or bruises Psych: Depressed mood and affect, tearful Neuro: No gross deficits HEENT: NC/AT, Chest: Nontender to palpation, noted port on right chest CV: RRR, Normal s1, s2. No murmurs appreciated Resp: Breath sounds clear bilaterally, no increased effort of breathing. Abdomen: Soft, tender in right quadrants, nondistended. Extremities: Trace edema in lower extremities bilaterally. Results & Data Results & Data ([facility]) Vital Signs (Past 12 Hours) Vital Signs Temp Pulse Pulse Resp BP BP Pulse Ox 11/05/19 22:30 98 H 26 H 115/82 11/05/19 22:00 92 H 26 H 139/85 11/05/19 21:30 89 26 H 117/73 11/05/19 21:00 87 24 113/75 11/05/19 20:37 89 23 122/81 97 11/05/19 19:30 86 19 140/83 99 11/05/19 19:00 92 H 92 H 22 122/86 100 11/05/19 18:30 36.5 C 72 18 98/67 L 99 Code Status & VTE Plan VTE Prophylaxis Plan VTE Prophylaxis will be ordered: Yes Supervising Physician Co-Signing Physician Notes Attending addendum: I have physically seen this patient, have supervised the medical residents ac tivities, and agree with the H&P unless as otherwise noted. Assessment and Plan: Status post fall- Urinary tract infection, generalized weakness, dehydration and deconditioning. CT head and cervical spine negative. MRI brain pending. PT OT assessment Urinary tract infection/right renal hydronephrosis associated with postobstructive change and low position of right ureteral stent at UPJ Follow urine culture and sensitivity. Empiric ceftriaxone 1 g IV daily Consult urology if desired Consult palliative therapy Remainder of orders and notations as noted Resident Activity Tracking Resident Involvement: Resident Care Provided Care Provided: Adult [facility] Medicine
[2019-11-05 22:52] LABS: Magnesium 1.3 mg/dl (1.8-2.4); Phosphorus 2.5 mg/dl (2.5-4.9)
[2019-11-05] MEDS ORDERED: METOCLOPRAMIDE HCL 10 MG TABLET PO PRN (23:31)
[2019-11-05] MEDS ORDERED: ONDANSETRON 4 MG OD TAB PO PRN (23:37)
[2019-11-05] MEDS ORDERED: POTASSIUM CHLORIDE 20 MEQ TABCR PO ONE (23:59)
[2019-11-05] MEDS ORDERED: MAGNESIUM OXIDE 400 MG TAB PO ONE (23:59)
[2019-11-06] MEDS: OXYCODONE HCL IR 5 MG TAB (IMMEDIATE RELEASE) PO PRN ×3 (01:49→20:10)
[2019-11-06] MEDS: LORazepam 1 MG TAB PO PRN ×2 (01:49→20:10)
[2019-11-06 07:14] LABS: Basophils # (auto) 0.02 K/uL (0-0.2); Basophils % (auto) 0.2 %; Eosinophils # (auto) 0.01 K/uL (0-0.5); Eosinophils % (auto) 0.1 %; Hematocrit (blood only) 22.6 % (37-47); Hemoglobin 7.7 g/dL (12.0-16.0); Immature Granulocytes # (auto) 0.05 K/uL (0.00-0.02); Immature Granulocytes % (auto) 0.4 %; Lymphocytes # (auto) 2.02 K/uL (1.2-3.4); Lymphocytes % (auto) 15.5 %; Mean Corpuscular Hemoglobin 29.2 pg (25-34); Mean Corpuscular Hgb Conc 34.1 g/dL (32-36); Mean Corpuscular Volume 85.6 fL (80-100); Mean Platelet Volume 9.6 fL (7.4-10.4); Monocytes # (auto) 1.18 K/uL (0.11-0.59); Neutrophils # (auto) 9.78 K/uL (1.4-6.5); Neutrophils % (auto) 74.8 %; Platelet Count 315 K/uL (130-400); RDW Coefficient of Variation 18.3 % (11.5-14.5); RDW Standard Deviation 56.4 fL (36.4-46.3); Red Blood Count 2.64 M/uL (4.2-5.4); White Blood Count 13.06 K/uL (4.8-10.8)
[2019-11-06 07:46] LABS: Anisocytosis Present; Hypochromasia Present; Target Cells 1+
[2019-11-06 07:48] LABS: Albumin Level 1.8 gm/dl (3.4-5.0); BUN Creatinine Ratio 15.4 (10-20); Calcium 8.2 mg/dl (8.5-10.1); Est GFR (African American) 88.2; Est GFR (Non-African American) 76.1; Potassium 3.5 mmol/L (3.5-5.1)
[2019-11-06 08:05] LABS: Albumin Globulin Ratio 0.4 (0.9-2); Globulin 4.3 gm/dl (2.5-4.0); Thyroid Stimulating Hormone 4.39 uIu/ml (0.300-4.500); Total Protein 6.1 gm/dl (6.4-8.2)
[2019-11-06] MEDS: MAGNESIUM OXIDE 400 MG TAB PO SCH ×2 (08:20→20:09)
[2019-11-06] MEDS: LORATADINE 10 MG TAB PO SCH (08:20)
[2019-11-06] MEDS: PANTOprazole 40 MG TAB PO SCH (08:20)
[2019-11-06] MEDS: METOPROLOL SUCC 25MG EXT REL TAB PO SCH (08:21)
[2019-11-06] MEDS: POTASSIUM CHLORIDE 20 MEQ TABCR PO SCH ×2 (08:21→20:10)
--- NOTE | 2019-11-06 08:50 | Palliative Care Consultation ---
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 She is admitted for abnormal UA, culture pending, and electrolyte abnormalities. Hgb/Hct 8.3/24.9 on admission, was 8.0/24.3 on 10/20. Potassium 2.9, now 3.5 today, bilirubin 1.4 now 1.0 today, INR 1.5, albumin 1.8. Patient was admitted to the hospital at the end of August and the beginning of September 2019 as well. She is becoming increasingly weak and ill from the cancer and chemotherapy-- weakness, N/V, diarrhea, urinary incontinence, reported vaginal bleeding. Last chemo was two weeks ago. Heme/onc note from 08/27/2019-- initially there was treatment response to chemo, but th en disease began to worsen later in 2018. Now, CT abd/pelvis shows "interval development of diffuse hepatic metastatic change, probable soft tissue mass base of the bladder with potential extension into the distal right ureter, Moderate free fluid within the pelvic cul-de-sac with bowel wall thickening of several low pelvic bowel loops. This potentially indicates pelvic metastatic change. Considerable increase in size of a previously described presacral soft tissue density. This now demonstrates central necrosis." Patient has expressed frustration with her worsening condition and perceived poor quality of life. She expressed to the admitting provider that she doesn't "want to live this way," and wants to take a palliative approach. Palliative care is now consulted. -At home, patient reportedly takes Celexa 40mg daily, Marinol 5mg BID (not ordered here), fentanyl patch 12mcg/hr (not ordered), lorazepam 1mg Q6h PRN anxiety (had a dose at 0149 this morning), oxycodone IR 10mg Q4h PRN pain (had a dose at 0149 this AM). Patient reported to the nurse she had generalized pain at 10/10. Need to find out when fentanyl patch last changed. -Patient certainly qualifies for hospice care at this point, depending on what her goals of care are. She lives at home with her Aurelio, and up until this point has reported that she is independent with ADLs, but is becoming increasingly weak. She attempted to have home health services upon discharge at end of September, but it looks like that didn't happen due to insurance issues. She reported to the rn case manager at that time that she did not want hospice services, but it seems that things have possibly changed since then. This will be discussed with the patient. -Patient was seen and examined in room 285. She is tearful throughout conversa tion, is alert and oriented x4. -Patient is quite clear that she does not want any further testing, procedures or chemotherapy. Patient's wishes are to go home with hospice. She understands that her life expectancy is quite limited at this time. -Patient states the Oxycodone is working to control her pain. She does NOT use the fentanyl patch and hasn't for weeks. She also has lorazepam available at home that works well for her anxiety. -Patient states that if she is unable to make decisions for herself, she would want her jvaura-bn-aru, Kiki Shaffer, to do so for her. Patient's is of co urse supportive and involved, but he has had multiple strokes and has a difficult time communicating at times. -Patient asked that I call her , Aurelio, and tryjcr-bn-bjo, Kiki, to tell them her wishes. -I called both Aurelio and Kiki and made them aware that patient would like to return home with hospice tomorrow. Both are supportive of this. -POLST form completed as follows: DNR, comfort measures only, abx with comfort as the goal, no artificial hydration/nutrition. KIMBERLY Swanson is surrogate. -We will continue to follow as needed, but we have nothing further to add at this point. Thank you again for this consult. 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 She is admitted for abnormal UA, culture pending, and electrolyte abnormalities. Hgb/Hct 8.3/24.9 on admission, was 8.0/24.3 on 10/20. Potassium 2.9, now 3.5 today, bilirubin 1.4 now 1.0 today, INR 1.5, albumin 1.8. Patient was admitted to the hospital at the end of August and the beginning of September 2019 as well. She is becoming increasingly weak and ill from the cancer and chemotherapy-- weakness, N/V, diarrhea, urinary incontinence, reported vaginal bleeding. Last chemo was two weeks ago. Heme/onc note from 08/27/2019-- initially there was treatment response to chemo, but then disease began to worsen later in 2018. Now, CT abd/pelvis shows "interval development of diffuse hepatic metastatic change, probable soft tissue mass base of the bladder with potential extension into the distal right ureter, Moderate free fluid within the pelvic cul-de-sac with bowel wall thickening of several low pelvic bowel loops. This potentially indicates pelvic metastatic change. Considerable increase in size of a previously described presacral soft tissue density. This now demonstrates central necrosis." Patient has expressed frustration with her worsening condition and perceived poor quality of life. She expressed to the admitting provider that she doesn't "want to live this way," and wants to take a palliative approach. Palliative care is now consulted. Thank you kindly for this consult. Palliative care team will follow as needed. Allergies Allergy/AdvReac Type Severity Reaction Status Date / Time olanzapine AdvReac Severe out of Unverified 11/05/19 19:26 body feeling and mind wondering naproxen AdvReac Mild EYELID Verified 11/05/19 19:26 SWELLING Home Medications Home Medications Medication Instructions Recorded Confirmed Type Probiotic 3,000 mmu cells PO QDL 05/18/19 11/05/19 History Vitamin B-6 50 mg PO QDL 05/18/19 11/05/19 History cyanocobalamin (vitamin B-12) 500 mcg PO QDL 05/18/19 11/05/19 History multivitamin 1 tab PO QDL 05/18/19 11/05/19 History metoprolol succinate 25 mg PO QAM 09/09/19 11/05/19 History pravastatin 10 mg PO HS 09/09/19 11/05/19 History metoclopramide HCl [Reglan] 10 mg PO TID PRN #14 tab 09/13/19 11/05/19 Rx ondansetron HCl 8 mg tablet 8 mg PO Q8H PRN tab 09/18/19 11/05/19 History citalopram 20 mg tablet 40 mg PO QDL #180 tab 10/13/19 11/05/19 Rx potassium chloride 20 meq PO QAM 10/18/19 11/05/19 History lorazepam 1 mg PO Q6H PRN #20 tab 10/21/19 11/05/19 Rx oxycodone 10 mg PO Q4H PRN #30 tab 10/21/19 11/05/19 Rx omeprazole 20 mg capsule,delayed 20 mg PO DAILY #90 cap 10/27/19 11/05/19 Rx release fentanyl 12 mcg/hr transdermal 12 mcg TD [id number] 10/29/19 11/05/19 History patch loratadine 10 mg tablet 10 mg PO DAILY 10/29/19 11/05/19 History dronabinol 5 mg PO BID 11/05/19 11/05/19 History Patient History Medical History (Updated 11/06/19 @ 10:25 by Jaron Sommer MD) Anxiety (Chronic) Cancer associated pain Endometrial carcinoma (Resolved) Hyperlipidemia Hypertension Peritoneal metastases Uterine cancer Surgical History (Updated 10/29/19 @ 15:37 by THOM Perez) History of carpal tunnel surgery History of hysterectomy History of oral surgery History of removal of cyst (~2014) left upper chest epidermoid cyst History of surgery on wrist History of tonsillectomy S/P appendectomy 05/19/19 Dr. Santos Polanco- Open appendectomy Family History (Updated 10/29/19 @ 15:39 by THOM Perez) Mother Colorectal cancer Diabetes Cancer Rectal cancer Father Myocardial infarction Cardiac disorder Stroke Hypertension Grandmother Diabetes Family/Other Breast cancer Denies family history of Ovarian cancer Prostate cancer Social History Preferred Language: Qatari Communication Ability: Effective Visual Impairment: No Limitations Hearing Ability: Normal Personnel Research Scientist Required: No Beliefs That Will Affect Care: None marital status: Current Living Situation: Spouse and Family current occupational status: disabled Other Information That Helps Us Care for You: No Feels Safe at Home: Yes Safety Concerns: Feels Safe At This Time Smoking Status: Never smoker Do You Dip or Chew Tobacco: No ; Second Hand Exposure: Yes ; Tobacco Cessation Education Requested by Patient: No Hx Alcohol Use: No Hx Substance Use: No Childhood Exposure to Second-Hand Smoke: No Dental Care, Regularly: Yes Physical Activity Frequency: Daily Seatbelt Use: always Sunscreen Use: Yes Review of Systems Review of Systems: +weakness + poor appetite +Nausea/vomiting + lower abdominal pain- constant, 10/10 at its worst, 6/10 at best. Oxycodone works to relieve pain to a 4-6/10. Physical Exam Constitutional: + ill appearing and + frail appearing ENMT: external ear and nose normal, oropharynx normal Respiratory: normal respiratory effort; no labored breathing Cardiovascular: Rate/Rhythm: regular rate and regular rhythm Skin: no rashes, warm and dry Neurologic: moves all extremities and awake; not confused Psychiatric: A+Ox3, euthymic affect Affect: + tearful affect Insight: good insight Judgement: good judgement Results & Data Vital Signs (Past 12 Hours) Vital Signs Temp Pulse Pulse Resp BP BP BP 11/06/19 07:10 36.6 C 91 H 18 131/83 11/06/19 04:00 37 C 93 H 20 143/97 H 11/06/19 02:41 96 H 11/05/19 23:00 36.4 C L 87 88 20 145/83 H 11/05/19 22:45 11/05/19 22:30 98 H 26 H 115/82 11/05/19 22:00 92 H 26 H 139/85 11/05/19 21:30 89 26 H 117/73 11/05/19 21:00 87 24 113/75 Pulse Ox 11/06/19 07:10 98 11/06/19 04:00 96 11/06/19 02:41 11/05/19 23:00 100 11/05/19 22:45 99 11/05/19 22:30 11/05/19 22:00 11/05/19 21:30 11/05/19 21:00 Coding Level of Care Code 36860 Inpt Consult Level 3 Diagnoses Goals of care, counseling/discussion Z71.89 Acute UTI N39.0 Weakness R53.1 Endometrial carcinoma C54.1 Time Spent (min) 70 Time Spent Midlevel 70 minutes with >50% of the time spent at bedside with patient and on phone with family discussing condition and GOC.
--- NOTE | 2019-11-06 10:07 | Nephrology Consultation ---
Date of Consultation November 06, 2019 Assessment & Plan (1) Hyponatremia: -- Moderate hypoosmolar hyponatremia at time of presentation. No serum osmolar gap. Urine osmolality was inappropriately elevated at presentation -- Serum sodium has corrected following free water restriction. Recommend 1.5 L free water restriction/day -- TSH and cortisol within normal limits -- Patient reports no significant benefit to Celexa. Recommend tapering SSRI to off as this may contribute to inappropriate ADH release -- Monitor PRP (2) Hypomagnesemia: -- Correcting w/ supplement. Continue Mag-ox 400 mg po BID. Target serum Mg > 1.5 (3) Hypokalemia: -- Corrected following KCl supplement. Continue KCl 20 mEq po BID (4) Acute UTI: -- Urinalysis is suggestive of UTI. Urine culture is pending. Patient currently on Ceftriaxone therapy (5) Endometrial carcinoma: -- Await input from Oncology and Palliative Care History of Present Illness Reason for Consultation: Hyponatremia Attending Physician: Solis Dickens DO History of Present Illness Mrs. Shaffer is a 59 year old white female who is seen at the request of Dr. Mitchell for evaluation of hyponatremia. Medical records in the EMR were reviewed this morning and are summarized as follows: Mrs. 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 In 10/09 she was found to have metastasis to the bladder causing R ureteral obstruction. She underwent ureteral stent placement by Dr. Lam ([facility] [place] [facility]). Her medical history is also significant for depression and GERD. Mrs. Shaffer has become progressively week. Yesterday she suffered a mechanical fall and was brought to the ED for evaluation. laboratory results revealed preserved kidney function but serum sodium of 127. Serum osmolality was low and there was no osmolar gap. Uosm were inappropriately elevated at ~ 400. TSH and cortisol levels were normal. Urinalysis was suggestive of cystitis. Mrs. Shaffer was admitted for management of UTI. Free water has been restricted. She expresses a desire not to undergo aggressive medical intervention due to her metastatic cancer and declining quality of life. Palliative care has been asked to consult as well. Allergies Allergy/AdvReac Type Severity Reaction Status Date / Time olanzapine AdvReac Severe out of Unverified 11/05/19 19:26 body feeling and mind wondering naproxen AdvReac Mild EYELID Verified 11/05/19 19:26 SWELLING Home Medications Home Medications Medication Instructions Recorded Confirmed Type Probiotic 3,000 mmu cells PO QDL 05/18/19 11/05/19 History Vitamin B-6 50 mg PO QDL 05/18/19 11/05/19 History cyanocobalamin (vitamin B-12) 500 mcg PO QDL 05/18/19 11/05/19 History multivitamin 1 tab PO QDL 05/18/19 11/05/19 History metoprolol succinate 25 mg PO QAM 09/09/19 11/05/19 History pravastatin 10 mg PO HS 09/09/19 11/05/19 History metoclopramide HCl [Reglan] 10 mg PO TID PRN #14 tab 09/13/19 11/05/19 Rx ondansetron HCl 8 mg tablet 8 mg PO Q8H PRN tab 09/18/19 11/05/19 History citalopram 20 mg tablet 40 mg PO QDL #180 tab 10/13/19 11/05/19 Rx potassium chloride 20 meq PO QAM 10/18/19 11/05/19 History lorazepam 1 mg PO Q6H PRN #20 tab 10/21/19 11/05/19 Rx oxycodone 10 mg PO Q4H PRN #30 tab 10/21/19 11/05/19 Rx omeprazole 20 mg capsule,delayed 20 mg PO DAILY #90 cap 10/27/19 11/05/19 Rx release fentanyl 12 mcg/hr transdermal 12 mcg TD [id number] 10/29/19 11/05/19 History patch loratadine 10 mg tablet 10 mg PO DAILY 10/29/19 11/05/19 History dronabinol 5 mg PO BID 11/05/19 11/05/19 History Patient History Medical History (Updated 11/06/19 @ 10:25 by Jaron Sommer MD) Anxiety (Chronic) Cancer associated pain Endometrial carcinoma (Resolved) Hyperlipidemia Hypertension Peritoneal metastases Uterine cancer Surgical History (Updated 10/29/19 @ 15:37 by THOM Perez) History of carpal tunnel surgery History of hysterectomy History of oral surgery History of removal of cyst (~2014) left upper chest epidermoid cyst History of surgery on wrist History of tonsillectomy S/P appendectomy 05/19/19 Dr. Santos Polanco- Open appendectomy Family History (Updated 10/29/19 @ 15:39 by THOM Perez) Mother Colorectal cancer Diabetes Cancer Rectal cancer Father Myocardial infarction Cardiac disorder Stroke Hypertension Grandmother Diabetes Family/Other Breast cancer Denies family history of Ovarian cancer Prostate cancer Social History Preferred Language: Syriac Communication Ability: Effective Visual Impairment: No Limitations Hearing Ability: Normal Human Factors Advisor Lead Required: No Beliefs That Will Affect Care: None marital status: Current Living Situation: Spouse and Family current occupational status: disabled Other Information That Helps Us Care for You: No Feels Safe at Home: Yes Safety Concerns: Feels Safe At This Time Smoking Status: Never smoker Do You Dip or Chew Tobacco: No ; Second Hand Exposure: Yes ; Tobacco Cessation Education Requested by Patient: No Hx Alcohol Use: No Hx Substance Use: No Childhood Exposure to Second-Hand Smoke: No Dental Care, Regularly: Yes Physical Activity Frequency: Daily Seatbelt Use: always Sunscreen Use: Yes Review of Systems Constitutional: + weakness; no fever Eyes: no worsening vision and no problem reported Ear, Nose, Mouth, Throat: no problem reported Respiratory: no dyspnea Cardiovascular: no chest pain, no palpitations and no edema Gastrointestinal: + diarrhea/loose stools (liquid BM 3x/week); no abdominal pain, no nausea and no vomiting Genitourinary: no dysuria Musculoskeletal: no back pain Integumentary: no rash Neurologic: no falls, no dizziness and no confusion Physical Exam Constitutional: + thin and + frail appearing; not in distress Eyes: PERRL, conjunctivae normal, anicteric sclerae ENMT: external ear and nose normal, oropharynx normal Neck: trachea midline, no thyromegaly Respiratory: normal respiratory effort, lungs clear to auscultation Cardiovascular: RRR, no murmur, no edema Gastrointestinal (Abdomen): normal bowel sounds, soft, nontender, no hepatosplenomegaly Musculoskeletal: Extremities: no cyanosis Skin: + turgor decreased Neurologic: awake; not confused Results & Data Vital Signs (Past 12 Hours) Vital Signs Temp Pulse Pulse Resp BP BP BP 11/06/19 07:10 36.6 C 91 H 18 131/83 11/06/19 04:00 37 C 93 H 20 143/97 H 11/06/19 02:41 96 H 11/05/19 23:00 36.4 C L 87 88 20 145/83 H 11/05/19 22:45 11/05/19 22:30 98 H 26 H 115/82 Pulse Ox 11/06/19 07:10 98 11/06/19 04:00 96 11/06/19 02:41 11/05/19 23:00 100 11/05/19 22:45 99 11/05/19 22:30 Laboratory Results Laboratory Tests 11/05/19 11/05/19 11/05/19 18:50 18:50 18:50 WBC Hgb Hct Plt Count Sodium Potassium Chloride Carbon Dioxide BUN Creatinine Osmolality Urine Color Red Urine Appearance Turbid A Urine pH 7.0 Ur Specific [place] 1.032 H Urine Protein 4+ H Urine Glucose (UA) Negative Urine Ketones Trace H Urine Blood 3+ H Urine Nitrite Negative Ur Leukocyte Esterase 1+ H Urine RBC >30 H Urine WBC 10-30 H Ur Epithelial Cells 0-5 Urine Bacteria 1+ H Urine Osmolality 426 L Ur Random Sodium 62 11/05/19 11/06/19 11/06/19 19:05 07:00 07:00 WBC 13.06 H Hgb 7.7 L Hct 22.6 L Plt Count 315 Sodium Pending Potassium 3.5 D Chloride 102 Carbon Dioxide 26 BUN 13 Creatinine 0.83 Osmolality 278 L Urine Color Urine Appearance Urine pH Ur Specific [place] Urine Protein Urine Glucose (UA) Urine Ketones Urine Blood Urine Nitrite Ur Leukocyte Esterase Urine RBC Urine WBC Ur Epithelial Cells Urine Bacteria Urine Osmolality Ur Random Sodium PG Care Time/CCT Total # of Minutes Spent Total Time Spent with Patient: Total time spent is greater than 50% in coordination of care (as documented) at patient's floor/unit and/or counseling patient: Coding Level of Care Code 58146 Inpt Consult Level 5 Diagnoses Hyponatremia E87.1 Hypomagnesemia E83.42 Hypokalemia E87.6 Acute UTI N39.0 Endometrial carcinoma C54.1
[2019-11-06] MEDS ORDERED: CITALOPRAM 40 MG TAB PO SCH (11:30)
--- NOTE | 2019-11-06 11:55 | Hospitalist Progress Note ---
Date of Service November 06, 2019 Assessment & Plan (1) Endometrial carcinoma: presents with worsening endometrial and ovarian cancer local and distant metastases on CT, diffuse hepatic involvement last chemotherapy was two weeks ago patient clear about her wishes, she wants to go home on hospice does not want any further procedures, treatment, work up palliative care consultation today, plan to go home on hospice POLST completed, DNR, stay at home with comfort as goal, abx with comfort, no artificial nutrition or hydration designated decision maker is her sister in law as her has h/o strokes and difficult time communicating patient's pain controlled on Oxycodone, anxiety controlled with Ativan she has what she needs at home, plans to pick home hospice agency tomorrow prior to discharge (2) Ovarian cancer: see above (3) Peritoneal metastases: see above no further chemotherapy (4) Hyponatremia: Na up to 135 with fluid restriction appreciate nephrology consult, will plan to taper off of citalopram as it is not helping will decrease from 40mg to 20mg daily, stay on this dose for 2 weeks then go down to 10mg daily (5) Hypokalemia: resolved, up to 3.5 today (6) Weakness: due to metastatic disease plan for home hospice (7) Acute UTI: possible UTI, UA looks like she has infection continue Rocephin for now urine culture with just pin point growth, re-incubating may not really need antibiotics on discharge, follow up final culture results (8) Goals of care, counseling/discussion: spent time discussing home hospice with patient discussed with palliative care provider as well go home on hospice (9) Anxiety: Ativan PRN Admission and Anticipated Discharge Date Admission Date: November 05, 2019 Anticipated date of discharge: 11/07/19 Subjective patient resting comfortably says that she is not in much pain currently, she no longer wears Fentanyl patch that she was previously prescribed she has not been eating well she is still making urine, still moving her bowels, no nausea or vomiting appreciate nephrology consultation, continue fluid restriction, suggest tapering off of SSRI since it is not helping mood appreciate palliative consultation, discussed with Marielle TOMAS, plan for home with hospice tomorrow POLST completed, DNR, stay at home with comfort as goal, abx with comfort goal, no artificial nutrition/hydration she designated her sister in law to be her decision maker labs reviewed today, WBC 13k, Hb 7.7, Na up to 135, Cr is 0.8 urine culture just showing pin point growth, re-incubating CM met with patient, currently has what she needs at home, just needs to choose a home hospice agency prior to discharge tomorrow Review of Systems Review of Systems: All systems reviewed & are unremarkable except as noted in HPI & below Constitutional: + fatigue and + weakness; no fever Respiratory: no cough and no dyspnea Cardiovascular: no chest pain and no edema Gastrointestinal: + abdominal pain; no nausea, no vomiting, no constipation and no diarrhea/loose stools Physical Exam Constitutional: well developed, + ill appearing, + thin and + frail appearing Eyes: PERRL, conjunctivae normal, anicteric sclerae ENMT: external ear and nose normal, oropharynx normal Neck: trachea midline, no thyromegaly Respiratory: normal respiratory effort, lungs clear to auscultation Cardiovascular: RRR, no murmur, no edema Gastrointestinal (Abdomen): Inspection/Auscultation: abdomen normal to inspec tion and normal bowel sounds; abdomen not distended Percussion/Palpation: + abdomen tender (diffuse, mild) and abdomen soft; no guarding and abdomen not rigid Musculoskeletal: Head/Neck/Chest: normocephalic and head atraumatic Extremities: extremities normal to inspection and + abnormal strength (generalized weakness) Skin: no rashes, warm and dry Neurologic: patellar DTR's 2+ bilat, sensation intact and PERRL, EOMI, accommodation nl, no face palsy, no dysarthria Psychiatric: Orientation: alert and oriented x 3 Affect: + tearful affect Mood: + depressed mood Lymphatic: no cervical or axillary lymphadenopathy Results & Data Results & Data ([facility]) Vital Signs (Past 12 Hours) Vital Signs Temp Pulse Pulse Resp BP Pulse Ox 11/06/19 11:20 36.4 C L 85 16 114/75 98 11/06/19 09:00 88 11/06/19 07:10 36.6 C 91 H 18 131/83 98 11/06/19 04:00 37 C 93 H 20 143/97 H 96 11/06/19 02:41 96 H Laboratory Results Laboratory Results - last 24 hr 11/05/19 11/05/19 11/05/19 18:50 18:50 19:05 WBC RBC Hgb Hct MCV MCH MCHC RDW Std Deviation RDW Coeff of Abilio Plt Count MPV Immature Gran % (Auto) Neut % (Auto) Lymph % (Auto) [place] % (Auto) Eos % (Auto) Baso % (Auto) Immature Gran # (Auto) Neut # (Auto) Lymph # (Auto) [place] # (Auto) Eos # (Auto) Baso # (Auto) Hypochromasia Anisocytosis Target Cells Sodium Potassium Chloride Carbon Dioxide Anion Gap BUN Creatinine Est Cr Clr Drug Dosing Est GFR ( Amer) Est GFR (Non-Af Amer) BUN/Creatinine Ratio Glucose Osmolality 278 L Calcium Phosphorus Magnesium Total Bilirubin AST ALT Alkaline Phosphatase Total Protein Albumin Globulin Albumin/Globulin Ratio TSH Cortisol AM Sample Urine Osmolality 426 L Ur Random Sodium 62 11/05/19 11/06/19 11/06/19 19:05 07:00 07:00 WBC 13.06 H RBC 2.64 L Hgb 7.7 L Hct 22.6 L MCV 85.6 MCH 29.2 MCHC 34.1 RDW Std Deviation 56.4 H RDW Coeff of Abilio 18.3 H Plt Count 315 MPV 9.6 Immature Gran % (Auto) 0.4 Neut % (Auto) 74.8 Lymph % (Auto) 15.5 [place] % (Auto) 9.0 Eos % (Auto) 0.1 Baso % (Auto) 0.2 Immature Gran # (Auto) 0.05 H Neut # (Auto) 9.78 H Lymph # (Auto) 2.02 [place] # (Auto) 1.18 H Eos # (Auto) 0.01 Baso # (Auto) 0.02 Hypochromasia Present Anisocytosis Present Target Cells 1+ Sodium Potassium Chloride Carbon Dioxide Anion Gap BUN Creatinine Est Cr Clr Drug Dosing Est GFR ( Amer) Est GFR (Non-Af Amer) BUN/Creatinine Ratio Glucose Osmolality Calcium Phosphorus 2.5 Magnesium 1.3 L Total Bilirubin AST ALT Alkaline Phosphatase Total Protein Albumin Globulin Albumin/Globulin Ratio TSH Cortisol AM Sample 21.04 Urine Osmolality Ur Random Sodium 11/06/19 07:00 WBC RBC Hgb Hct MCV MCH MCHC RDW Std Deviation RDW Coeff of Abilio Plt Count MPV Immature Gran % (Auto) Neut % (Auto) Lymph % (Auto) [place] % (Auto) Eos % (Auto) Baso % (Auto) Immature Gran # (Auto) Neut # (Auto) Lymph # (Auto) [place] # (Auto) Eos # (Auto) Baso # (Auto) Hypochromasia Anisocytosis Target Cells Sodium 135 L D Potassium 3.5 D Chloride 102 Carbon Dioxide 26 Anion Gap 7.0 BUN 13 Creatinine 0.83 Est Cr Clr Drug Dosing 62.0 Est GFR ( Amer) 88.2 Est GFR (Non-Af Amer) 76.1 BUN/Creatinine Ratio 15.4 Glucose 90 Osmolality Calcium 8.2 L Phosphorus Magnesium Total Bilirubin 1.0 AST 115 H ALT 93 H Alkaline Phosphatase 905 H Total Protein 6.1 L Albumin 1.8 L Globulin 4.3 H Albumin/Globulin Ratio 0.4 L TSH 4.390 Cortisol AM Sample Urine Osmolality Ur Random Sodium Medications Administered Current Inpatient Medications Citalopram Hydrobromide (Celexa) 40 mg PO QDL [facility] Stop: 12/06/19 11:29 Last Admin: 11/06/19 12:14 Dose: 40 mg Documented by: Cyanocobalamin (Vitamin B-12) 500 mcg PO QDL [facility] Stop: 12/06/19 11:29 Last Admin: 11/06/19 12:14 Dose: 500 mcg Documented by: Ceftriaxone Sodium 1,000 mg/ (Dextrose) 50 mls @ 100 mls/hr IV Q24H [facility] Stop: 11/14/19 20:29 Last Infusion: 11/06/19 20:18 Dose: Infused Documented by: Lactobacillus Acidophilus (Floranex) 4 tab PO QDL [facility] Stop: 12/06/19 11:29 Last Admin: 11/06/19 12:14 Dose: 4 tab Documented by: Loratadine (Claritin) 10 mg PO DAILY [facility] Stop: 12/06/19 08:59 Last Admin: 11/06/19 08:20 Dose: 10 mg Documented by: Lorazepam (Ativan) 1 mg PO Q6H PRN PRN Reason: anxiety Stop: 12/05/19 23:33 Last Admin: 11/06/19 20:10 Dose: 1 mg Documented by: Magnesium Oxide (Mag-Ox) 400 mg PO BID [facility] Stop: 12/06/19 08:59 Last Admin: 11/06/19 20:09 Dose: 400 mg Documented by: Metoclopramide HCl (Reglan) 10 mg PO TID PRN PRN Reason: nausea and vomiting Stop: 12/05/19 23:30 Last Admin: 11/06/19 08:24 Dose: 10 mg Documented by: Metoprolol Succinate (Toprol Xl) 25 mg PO QAM [facility] Stop: 12/06/19 08:59 Last Admin: 11/06/19 08:21 Dose: 25 mg Documented by: Multivitamins (Multivitamin Tab) 1 tab PO QDL [facility] Stop: 12/06/19 11:29 Last Admin: 11/06/19 12:14 Dose: 1 tab Documented by: Ondansetron HCl (Zofran Odt) 8 mg PO Q8H PRN PRN Reason: Nausea And Vomiting Stop: 12/05/19 23:36 Oxycodone HCl (Roxicodone Immediate Rel) 10 mg PO Q4H PRN PRN Reason: Pain Stop: 11/19/19 23:30 Last Admin: 11/06/19 20:10 Dose: 10 mg Documented by: Pantoprazole Sodium (Protonix) 40 mg PO DAILY [facility] Stop: 12/06/19 08:59 Last Admin: 11/06/19 08:20 Dose: 40 mg Documented by: Potassium Chloride (Klor-Con M20) 20 meq PO BID [facility] Stop: 12/06/19 08:59 Last Admin: 11/06/19 20:10 Dose: 20 meq Documented by: Pravastatin Sodium (Pravachol) 10 mg PO HS [facility] Stop: 12/06/19 20:59 Last Admin: 11/06/19 20:09 Dose: 10 mg Documented by: Pyridoxine HCl (Vitamin B-6) 50 mg PO QDL [facility] Stop: 12/06/19 11:29 Last Admin: 11/06/19 12:14 Dose: 50 mg Documented by: PG Care Time/CCT Total # of Minutes Spent Total Time Spent with Patient: Total time spent is greater than 50% in coordination of care (as documented) at patient's floor/unit and/or counseling patient: Coding Level of Care Code 03279 Subseq Hosp Care Lvl 3 Diagnoses Endometrial carcinoma C54.1 Ovarian cancer C56.9 Peritoneal metastases C78.6 Hyponatremia E87.1 Hypokalemia E87.6 Weakness R53.1 Acute UTI N39.0 Goals of care, counseling/discussion Z71.89 Anxiety F41.9
[2019-11-06] MEDS: MULTIVITAMIN TAB PO SCH (12:14)
[2019-11-06] MEDS: CYANOCOBALAMIN 500 MCG TABLET (VITAMIN B-12) PO SCH (12:14)
[2019-11-06] MEDS: LACTOBACILLUS ACIDOPHILUS (FLORANEX) TAB PO SCH (12:14)
[2019-11-06] MEDS: PYRIDOXINE HCL 50 MG TAB PO SCH (12:14)
--- NOTE | 2019-11-06 17:19 | Electrocardiogram Report ---
Test Reason : Blood Pressure : / mmHG Vent. Rate : 109 BPM Atrial Rate : 109 BPM P-R Int : 144 ms QRS Dur : 074 ms QT Int : 342 ms P-R-T Axes : 061 019 064 degrees QTc Int : 460 ms Sinus tachycardia with frequent Premature ventricular complexes Nonspecific ST and T wave abnormality Abnormal ECG When compared with ECG of 08-OCT-2019 12:02, Premature ventricular complexes are now Present Confirmed by Shahbaz Loredo ([id number]) on 11/06/2019 5:19:30 PM Referred By: REFERRED SELF Confirmed By:Shahbaz Loredo
--- NOTE | 2019-11-06 17:21 | Electrocardiogram Report ---
Test Reason : Blood Pressure : / mmHG Vent. Rate : 086 BPM Atrial Rate : 086 BPM P-R Int : 144 ms QRS Dur : 078 ms QT Int : 416 ms P-R-T Axes : 000 025 036 degrees QTc Int : 497 ms Poor data quality, interpretation may be adversely affected Normal sinus rhythm with occasional Premature ventricular complexes Nonspecific ST abnormality When compared with ECG of 05-NOV-2019 18:52, No significant change Confirmed by Shahbaz Loredo ([id number]) on 11/06/2019 5:21:41 PM Referred By: REFERRED SELF Confirmed By:Shahbaz Loredo
[2019-11-06] MEDS: cefTRIAXone SODIUM 1,000 MG in DEXTROSE 5% 50 ML IV SCH (19:45)
[2019-11-06] MEDS ORDERED: PRAVASTATIN SOD 10 MG TAB PO SCH (21:00)
--- NOTE | 2019-11-06 23:53 | Billing Data ---
Date of Service November 06, 2019 Coding Level of Care Code 99580 Initial Inpt Care Lvl 2
[2019-11-07] MEDS: HEPARIN 100 UNIT/ML 5ML FLUSH FLUSH PRN ×2 (05:28→20:52)
[2019-11-07 06:39] LABS: Albumin Level 1.8 gm/dl (3.4-5.0); BUN Creatinine Ratio 17.2 (10-20); Calcium 8.4 mg/dl (8.5-10.1); Creatinine Clr Calc Pharmacy 69.1 ml/min; Est GFR (African American) 99.7
[2019-11-07 06:42] LABS: Albumin Globulin Ratio 0.4 (0.9-2); Bilirubin,Total 0.8 mg/dl (0.2-1); Globulin 4.4 gm/dl (2.5-4.0); Total Protein 6.2 gm/dl (6.4-8.2)
[2019-11-07] MEDS: MAGNESIUM OXIDE 400 MG TAB PO SCH ×2 (08:06→20:17)
[2019-11-07] MEDS: METOPROLOL SUCC 25MG EXT REL TAB PO SCH (08:06)
[2019-11-07] MEDS: PANTOprazole 40 MG TAB PO SCH (08:07)
[2019-11-07] MEDS: LORATADINE 10 MG TAB PO SCH (08:07)
[2019-11-07] MEDS: POTASSIUM CHLORIDE 20 MEQ TABCR PO SCH (08:07)
[2019-11-07] MEDS: OXYCODONE HCL IR 5 MG TAB (IMMEDIATE RELEASE) PO PRN ×2 (08:08→17:45)
--- NOTE | 2019-11-07 09:50 | Nephrology Progress Note ---
Date of Service November 07, 2019 Assessment & Plan Admission and Anticipated Discharge Date Admission Date: November 05, 2019 Subjective EMR reviewed this morning. Patient has metastatic uterine CA. She has spoken w/ Palliative Care and her family. She has chosen comfort measures and plans to return home w/ hospice. Serum sodium is mildly depressed this am, but will not order further testing or intervention. Will sign off. Please call if Nephrology assistance is needed Results & Data ([facility]) Vital Signs (Past 12 Hours) Vital Signs Temp Pulse Pulse Resp BP BP Pulse Ox 11/07/19 08:20 78 11/07/19 07:22 36.9 C 81 16 104/69 98 11/07/19 04:00 36.7 C 85 18 138/89 97 11/06/19 23:00 37 C 83 18 104/67 97 11/06/19 22:41 77 PG Care Time/CCT Total # of Minutes Spent Total Time Spent with Patient: Total time spent is greater than 50% in coordination of care (as documented) at patient's floor/unit and/or counseling patient: Coding Level of Care Code 13482 Subseq Hosp Care Lvl 1
[2019-11-07 10:45] LABS: Basophils # (auto) 0.01 K/uL (0-0.2); Basophils % (auto) 0.1 %; Eosinophils # (auto) 0.03 K/uL (0-0.5); Eosinophils % (auto) 0.2 %; Hematocrit (blood only) 21.8 % (37-47); Hemoglobin 7.3 g/dL (12.0-16.0); Immature Granulocytes # (auto) 0.05 K/uL (0.00-0.02); Immature Granulocytes % (auto) 0.4 %; Lymphocytes # (auto) 1.43 K/uL (1.2-3.4); Lymphocytes % (auto) 11.8 %; Mean Corpuscular Hemoglobin 29.7 pg (25-34); Mean Corpuscular Volume 88.6 fL (80-100); Mean Platelet Volume 9.4 fL (7.4-10.4); Monocytes # (auto) 1.12 K/uL (0.11-0.59); Monocytes % (auto) 9.2 %; Neutrophils # (auto) 9.52 K/uL (1.4-6.5); Neutrophils % (auto) 78.3 %; Platelet Count 302 K/uL (130-400); RDW Standard Deviation 60.3 fL (36.4-46.3); Red Blood Count 2.46 M/uL (4.2-5.4); White Blood Count 12.16 K/uL (4.8-10.8)
[2019-11-07 10:48] LABS: Mean Corpuscular Hgb Conc 33.5 g/dL (32-36)
[2019-11-07 11:03] LABS: Magnesium 1.4 mg/dl (1.8-2.4); Phosphorus 2.3 mg/dl (2.5-4.9)
[2019-11-07 11:24] LABS: Anisocytosis Present; Hypochromasia Present
[2019-11-07] MEDS ORDERED: CITALOPRAM 20 MG TAB PO SCH (11:30)
[2019-11-07] MEDS: CYANOCOBALAMIN 500 MCG TABLET (VITAMIN B-12) PO SCH (12:07)
[2019-11-07] MEDS: LACTOBACILLUS ACIDOPHILUS (FLORANEX) TAB PO SCH (12:08)
[2019-11-07] MEDS: PYRIDOXINE HCL 50 MG TAB PO SCH (12:09)
[2019-11-07] MEDS: MULTIVITAMIN TAB PO SCH (12:09)
--- NOTE | 2019-11-07 19:07 | Hospitalist Progress Note ---
Date of Service November 07, 2019 Assessment & Plan (1) Endometrial carcinoma: Regina Shaffer is an unfortunate 59 year old female who presented with progressive metastatic endometrial cancer and ovarian cancer local and distant metastases on CT, diffuse hepatic involvement last chemotherapy was two weeks ago Appreciate palliative care management with plan for home on hospice POLST completed, DNR, stay at home with comfort as goal Designated decision maker is her sister in law as her has h/o strokes and difficult time communicating although currently patient appears to have capacity to make some decisions Given current dizziness and pale appearance we did discuss possible benefit of blood transfusions for comfort but I think Will decrease pill burden with d/c statin and lactobacillus given goals of care. D/C potassium supplementation now serum K level improved. Given goal to get home will continue antibiotics for now given necrosis of cancer and potential complicated UTI in setting of metastatic disease and right ureteral stent patient's pain controlled on Oxycodone, anxiety controlled with Ativan Will put citalopram back to 40mg as reducing risks worsening depression even if it has not made much of a difference. Could consider switching SSRIs but given very poor prognosis she has what she needs at home, patient can be discharged once she has picked home hospice agency (2) Goals of care, counseling/discussion: (3) Hyponatremia: (4) Hypomagnesemia: (5) Anemia: (6) Depression: Admission and Anticipated Discharge Date Admission Date: November 05, 2019 Subjective Patient seen in AM. She reports feeling dizzy and generally unwell. Not in pain. Not yet chosen a hospice agency as waiting to speak to her friend. She denies any constipation. Discussed goals of care and she was unsure about a blood transfusion initially but said that it would be ok if that would help her current dizziness/light-headedness. Review of Systems Constitutional: + weakness; no fever and no body aches Gastrointestinal: no abdominal pain, no heartburn, no vomiting, no constipatio n and no diarrhea/loose stools Musculoskeletal: no back pain and no myalgia Neurologic: + unsteadiness, + generalized weakness, + lack of coordination and + dizziness Psychiatric: + depression; no change in appetite Physical Exam Constitutional: + ill appearing, + cachectic and + frail appearing ENMT: pale conjunctiva and lips Respiratory: normal respiratory effort, lungs clear to auscultation Cardiovascular: Rate/Rhythm: regular rate and regular rhythm Gastrointestinal (Abdomen): Inspection/Auscultation: + hypoactive bowel sounds Percussion/Palpation: abdomen soft; abdomen nontender, no guarding and abdomen not rigid Musculoskeletal: Extremities: extremities normal to inspection and + abnormal strength (generalized weakness) Skin: no rashes, warm and dry Neurologic: moves all extremities and awake; not confused Psychiatric: Orientation: alert and oriented x 3 Affect: + tearful affect Mood: + depressed mood Results & Data Results & Data ([facility]) Vital Signs (Past 12 Hours) Vital Signs Temp Pulse Pulse Resp BP BP Pulse Ox 11/07/19 15:05 36 C L 79 18 153/94 H 97 11/07/19 14:43 71 11/07/19 11:23 36.3 C L 78 20 141/70 H 96 11/07/19 08:20 78 11/07/19 07:22 36.9 C 81 16 104/69 98 PG Care Time/CCT Total # of Minutes Spent Total Time Spent with Patient: Total time spent is greater than 50% in coordination of care (as documented) at patient's floor/unit and/or counseling patient: Coding Level of Care Code 81694 Subseq Hosp Care Lvl 2 Diagnoses Endometrial carcinoma C54.1 Goals of care, counseling/discussion Z71.89 Hyponatremia E87.1 Hypomagnesemia E83.42 Anemia D64.9 Anemia type: unspecified type Depression F32.9 (1) Anemia Anemia type: unspecified type Qualified Code(s): D64.9 - Anemia, unspecified
[2019-11-07] MEDS: cefTRIAXone SODIUM 1,000 MG in DEXTROSE 5% 50 ML IV SCH (20:17)
[2019-11-07] MEDS: LORazepam 1 MG TAB PO PRN (20:17)
[2019-11-08] MEDS: LORazepam 1 MG TAB PO PRN (04:31)
[2019-11-08] MEDS: HEPARIN 100 UNIT/ML 5ML FLUSH FLUSH PRN ×2 (06:01→16:11)
[2019-11-08 06:25] LABS: Hematocrit (blood only) 22.8 % (37-47); Hemoglobin 7.4 g/dL (12.0-16.0); Mean Corpuscular Hemoglobin 28.7 pg (25-34); Mean Corpuscular Hgb Conc 32.5 g/dL (32-36); Mean Corpuscular Volume 88.4 fL (80-100); Mean Platelet Volume 9.5 fL (7.4-10.4); Platelet Count 298 K/uL (130-400); RDW Coefficient of Variation 18.9 % (11.5-14.5); RDW Standard Deviation 60.5 fL (36.4-46.3); Red Blood Count 2.58 M/uL (4.2-5.4); White Blood Count 12.24 K/uL (4.8-10.8)
[2019-11-08 06:54] LABS: Albumin Level 1.8 gm/dl (3.4-5.0); BUN Creatinine Ratio 16.7 (10-20); Calcium 8.5 mg/dl (8.5-10.1); Creatinine Clr Calc Pharmacy 68.7 ml/min; Est GFR (African American) 98.1; Est GFR (Non-African American) 84.7; Potassium 3.9 mmol/L (3.5-5.1)
[2019-11-08 07:09] LABS: Albumin Globulin Ratio 0.4 (0.9-2); Bilirubin,Total 0.8 mg/dl (0.2-1); Globulin 4.2 gm/dl (2.5-4.0)
[2019-11-08] MEDS: MAGNESIUM OXIDE 400 MG TAB PO SCH (08:13)
[2019-11-08] MEDS: PANTOprazole 40 MG TAB PO SCH (08:14)
[2019-11-08] MEDS: LORATADINE 10 MG TAB PO SCH (08:14)
[2019-11-08] MEDS: METOPROLOL SUCC 25MG EXT REL TAB PO SCH (08:14)
[2019-11-08] MEDS ORDERED: CITALOPRAM 40 MG TAB PO SCH (11:30)
[2019-11-08] MEDS: CYANOCOBALAMIN 500 MCG TABLET (VITAMIN B-12) PO SCH (11:32)
[2019-11-08] MEDS: PYRIDOXINE HCL 50 MG TAB PO SCH (11:32)
[2019-11-08] MEDS: MULTIVITAMIN TAB PO SCH (11:32)
--- NOTE | 2019-11-08 15:24 | Discharge Summary ---
Date of Service November 08, 2019 Admission HPI Per Admitting Provider Pt is a 59yo with a PMHx significant for metastatic uterine and ovarian cancer, anxiety/depression, HTN and HLD who was admitted with a UTI and abnormal electrolytes after a fall at home. Pt states she was getting out of bed and twisted her ankle and had an unwitnessed fall. Feels like she had some LOC and feels like she is having some "foggy" memory after this fall. Is currently having a slight headache but denies any changes to vision. SHe has been having diarrhea and urinary incontinence requiring frequent changes of her underwear and pads. Also having some vaginal bleeding with abdominal pain. States she lives at home with her and recently had chemotherapy 2 weeks ago. States she is not actively suicidal but would not like to pursue further procedures, and states she is "tired of living like this". PMHX: as below PSH: total abdominal hysterectomy, appendectomy Meds: As below Allergies: olanzapine and naproxen SH: Never smoker, hasn't drank alcohol since her cancer diagnosis and uses medical marijuana, though she hasn't used it recently. Lives at home with her . Admission Exam Per Admitting Provider General: Alert, oriented. No acute distress, laying bed Skin: No noted rashes or bruises Psych: Depressed mood and affect, tearful Neuro: No gross deficits HEENT: NC/AT, Chest: Nontender to palpation, noted port on right chest CV: RRR, Normal s1, s2. No murmurs appreciated Resp: Breath sounds clear bilaterally, no increased effort of breathing. Abdomen: Soft, tender in right quadrants, nondistended. Extremities: Trace edema in lower extremities bilaterally. Principal Diagnosis Confusion and weakness secondary to progression of metastatic endometrial cancer Complicated urine tract infection in setting of right ureteral obstruction Discharge Exam Constitutional + ill appearing, + cachectic and + frail appearing Respiratory normal respiratory effort, lungs clear to auscultation Cardiovascular Rate/Rhythm: regular rate and regular rhythm Musculoskeletal Head/Neck/Chest: normocephalic and head atraumatic Extremities: extremities normal to inspection and + abnormal strength (generalized weakness) Neurologic moves all extremities and awake; not confused Psychiatric Orientation: alert and oriented x 3 Affect: + depressed affect Mood: + depressed mood Discharge Data Allergies Allergy/AdvReac Type Severity Reaction Status Date / Time olanzapine AdvReac Severe out of Unverified 11/05/19 19:26 body feeling and mind wondering naproxen AdvReac Mild EYELID Verified 11/05/19 19:26 SWELLING Consultations 11/05/19 21:19 ED Decision to Admit Stat 11/05/19 23:31 Consult Palliative Care Routine Ordered Studies 11/05/19 18:44 CT abd pelvis IV con only Stat CT cervical spine wo con Stat CT head/brain wo con Stat Hospital Course (1) Endometrial carcinoma: Regina Shaffer is a 59 year old female admitted to [facility] from November 04 to 2019 after a fall at home, confusion and weakness. She was diagnosed with progression of her metastatic endometrial cancer in addition to a complicated urine tract infection with obstruction of your right ureter. We discussed possible interventions versus a more palliative approach to care and she with her family elected to be treated symptomatically at this time. She is now stable enough for discharge home on hospice care. (2) Goals of care, counseling/discussion: (3) Hyponatremia: (4) Hypomagnesemia: (5) Anemia: (6) Depression: Total Time Total Time Spent Total Time Spent (In Minutes): 35 Total Time Includes: Examination of the Patient, Discharge Planning and Medication Reconciliation Discharge Plan Discharge Items Patient Disposition: Hospice - Home Reason For Visit: Confusion, generalized weakness Discharge Diagnosis: Confusion and weakness secondary to progression of metastatic endometrial cancer Complicated urine tract infection in setting of right ureteral obstruction Condition on Discharge: Serious Goals: Comfort Activity: Per Instructions section Non-emergency contact: Meter Record Clerk Call non-emergency contact if: you have any medication questions and your symptoms worsen Follow-up/Referrals: Yumiko Edwards MD [Primary Care Provider] - (No follow up required.) Diet: Regular Addtl Attending Provider Instructions: You were admitted to [facility] from November 04 to 2019 after a fall at home, confusion and weakness. You were diagnosed with progression of your metastatic endometrial cancer in addition to a complicated urine tract infection with obstruction of your right ureter. We discussed possible interventions versus a more palliative approach to care and you elected to be treated symptomatically at this time. You are now medically stable to be discharged on hospice care as per your wishes. On discussion with your regarding a possible shower seat and wheeled walker these can be provided by hospice after discharge. You were initially treated with antibiotics while here but given palliative approach will defer continuing these to your hospice team. Kind regards, Dr Ravi Nascimento Pending Studies at Discharge: No Stand-Alone Forms: [facility] Medications and DC Order Prescriptions: Continued citalopram 20 mg tablet 40 mg PO QDL Qty: 180 RF: 1 omeprazole 20 mg capsule,delayed release(DR/EC) 20 mg PO DAILY Qty: 90 RF: 1 loratadine 10 mg tablet 10 mg PO DAILY RF: 0 ondansetron HCl 8 mg tablet 8 mg PO Q8H PRN (Reason: nausea and vomiting) RF: 0 oxycodone 10 mg tablet 10 mg PO Q4H PRN (Reason: Pain) Qty: 30 RF: 0 lorazepam 1 mg Tablet 1 mg PO Q6H PRN (Reason: Anxiety) Qty: 20 RF: 0 dronabinol 2.5 mg capsule 5 mg PO BID RF: 0 metoprolol succinate 25 mg tablet extended release 24 hr 25 mg PO QAM RF: 0 metoclopramide HCl [Reglan] 10 mg tablet 10 mg PO TID PRN (Reason: nausea and vomiting) Qty: 14 RF: 0 Changed fentanyl [Duragesic] 12 mcg/hr patch 72 hour 12 mcg TD [id number] PRN (Reason: Pain) Qty: 0 RF: 0 Discontinued potassium chloride 20 mEq tablet extended release 20 meq PO QAM RF: 0 multivitamin Tablet 1 tab PO QDL RF: 0 cyanocobalamin (vitamin B-12) 500 mcg Tablet 500 mcg PO QDL RF: 0 Vitamin B-6 50 mg Capsule 50 mg PO QDL RF: 0 Probiotic 3 billion cell Capsule 3,000 mmu cells PO QDL RF: 0 pravastatin 10 mg tablet 10 mg PO HS RF: 0 Discharge Orders: Discharge Order (Routine); Ordered 11/08/19 Ordered By: Ravi Nascimento Admission Data Admit Date/Time: 11/05/19 22:15 Attending Provider: Ravi Nascimento Admit Provider: Yin Mitchell Primary Care Provider: Yumiko Edwards Other Providers: Aneudy Vasquez ; Tasia George ; [facility] Other Interventions: Discharge Summary Assessment (RN) Last Done: 11/08/19 15:46 DC Date/Time DO NOT enter until pt leaves facility: 11/08/19 17:00 Coding Level of Care Code D/C Day Management >30 mins Diagnoses Endometrial carcinoma C54.1 Goals of care, counseling/discussion Z71.89 Hyponatremia E87.1 Hypomagnesemia E83.42 Anemia D64.9 Anemia type: unspecified type Depression F32.9
== END 2019-11-08 17:00 | disposition hospice, home (50) | DRG 690 ==
LOC: ED 18:29 → SUATTDRO 22:15 → 2N 22:15